=== PATIENT | female | born 1985 | race African-American/Black ===

== ENCOUNTER 2016-10-12 15:25 | Outpatient (CLI) | payer MEDICAID ==
[~2016-10-12 15:25] MED LIST: FERRIC CARBOXYMALTOSE 750 MG in NORMAL SALINE 250 ML IV PRN; NORMAL SALINE 250 ML IV PRN
[2016-10-12 16:48] VITALS: BP 110/76
[2016-10-18] MEDS ORDERED: FERRIC CARBOXYMALTOSE 750 MG in NORMAL SALINE 250 ML IV PRN (07:40)
== END 2016-10-12 16:52 | disposition home or self-care (01) ==
LOC: II 15:25 → 5TH 15:27 → II 16:52
PROVIDERS: ATTEND Internal Medicine
PROC: 3E033GC Introduction of Other Therapeutic Substance into Peripheral Vein, Percutaneous Approach (ICD-10-PCS; principal; 2016-10-12)
DX: D50.8 Other iron deficiency anemias (principal); K90.9 Intestinal malabsorption, unspecified
CPT/HCPCS: 96365; J7050; J1439; 96367

== ENCOUNTER 2016-10-19 14:59 | Outpatient (CLI) | payer MEDICAID ==
[2016-10-19 15:32] VITALS: BP 136/98
== END 2016-10-19 15:42 | disposition home or self-care (01) ==
LOC: II 14:59 → 5TH 15:05 → II 15:42
PROVIDERS: ATTEND Internal Medicine
PROC: 3E033GC Introduction of Other Therapeutic Substance into Peripheral Vein, Percutaneous Approach (ICD-10-PCS; principal; 2016-10-19)
DX: D50.8 Other iron deficiency anemias (principal); K90.9 Intestinal malabsorption, unspecified
CPT/HCPCS: 96365; J7050; J1439; 96367

== ENCOUNTER → 2016-11-15 | Outpatient (CLI) | payer MEDICAID | LOC: RAD 06:59 | PROVIDERS: ATTEND Physician Assistant | DX: M54.41 Lumbago with sciatica, right side (principal) | CPT/HCPCS: 72148 ==

== ENCOUNTER → 2017-01-06 | Outpatient (CLI) | payer MEDICAID | LOC: RAD 13:27 | PROVIDERS: ATTEND Physician Assistant | DX: R20.0 Anesthesia of skin (principal); M54.5 Low back pain | CPT/HCPCS: 82565; 72158; 70470; A9577 ==

== ENCOUNTER 2017-06-24 13:10 | Emergency (ER) | payer MEDICAID ==
--- NOTE | 2017-06-24 15:44 | ER Document Report ---
ED Hip Pain/Injury - General Chief Complaint: Hip Pain Stated Complaint: LEFT SIDE PAIN Time Seen by Provider: 06/24/17 14:50 Mode of Arrival: Ambulatory Information source: Patient Notes: 32-year-old female presents to ED for complaint of lower back hip and down her leg pain. She has chronic pain. She has been on chronic pain management before where she received Percocet. She states that her doctor is trying to put her back on pain management but her pain is gotten pretty bad at this time. Reviewed pain policy with patient concerning chronic pain. Pending she will need to follow-up with her primary doctor for chronic pain management. Patient denies any new injuries TRAVEL OUTSIDE OF THE [place] IN LAST 30 DAYS: No - HPI Patient complains to provider of: Pain, Hip, Pelvis Occurred: Other - Down her leg for more than a year Onset/Duration: Persistent, Waxing and waning Quality of pain: Pressure, Sharp Severity: Severe Rotation of extremity: None Pain with palpation of the pelvis: Yes Associated Symptoms: None. denies: Loss of control/bowel, Loss of control/ bladder, Motor loss, Sensory loss - Related Data Allergies/Adverse Reactions: No Known Allergies Allergy (Verified 06/24/17 13:29) Past Medical History - General Information source: Patient - Social History Smoking Status: Never Smoker Cigarette use (# per day): No Chew tobacco use (# tins/day): No Smoking Education Provided: No Frequency of alcohol use: None Drug Abuse: None Lives with: Family Family History: Reviewed & Not Pertinent Patient has suicidal ideation: No Patient has homicidal ideation: No - Past Medical History Cardiac Medical History: Reports: Hx Hypertension Pulmonary Medical History: Reports: None EENT Medical History: Reports: None Neurological Medical History: Reports: Hx Migraine Endocrine Medical History: Reports: Hx Hypothyroidism Renal/ Medical History: Reports: None Malignancy Medical History: Reports: None GI Medical History: Reports: None Musculoskeltal Medical History: Reports Hx Arthritis, Reports Hx Musculoskeletal Deformity, Reports Hx Musculoskeletal Trauma Skin Medical History: Reports None Psychiatric Medical History: Reports: Hx Bipolar Disorder, Hx Depression Traumatic Medical History: Reports: None Infectious Medical History: Reports: None Past Surgical History: Reports: Hx Abdominal Surgery, Hx Orthopedic Surgery - back surgery for a paraganglioma removal, Hx Tubal Ligation - Immunizations Immunizations up to date: Yes Hx Diphtheria, Pertussis, Tetanus Vaccination: No Review of Systems - Review of Systems Constitutional: No symptoms reported EENT: No symptoms reported Cardiovascular: No symptoms reported Respiratory: No symptoms reported Gastrointestinal: No symptoms reported Genitourinary: No symptoms reported Female Genitourinary: No symptoms reported Musculoskeletal: Back pain, Muscle pain, Muscle stiffness Skin: No symptoms reported Hematologic/Lymphatic: No symptoms reported Neurological/Psychological: No symptoms reported -: Yes All other systems reviewed and negative Physical Exam - Vital signs Vitals: Temp Pulse BP Pulse Ox 98.3 F 82 152/117 H 100 06/24/17 13:28 06/24/17 13:28 06/24/17 13:28 06/24/17 13:28 Interpretation: Normal - General General appearance: Appears well, Alert - HEENT Head: Normocephalic, Atraumatic Eyes: Normal Pupils: PERRL - Respiratory Respiratory status: No respiratory distress Chest status: Nontender Breath sounds: Normal Chest palpation: Normal - Cardiovascular Rhythm: Regular Heart sounds: Normal auscultation Murmur: No - Abdominal Inspection: Normal Distension: No distension Bowel sounds: Normal Tenderness: Nontender Organomegaly: No organomegaly - Back Back: Normal, Tender, Vertebra tenderness, Scars. No: Deformity/step-off, CVA tenderness, Scoliosis, Wounds - Extremities General upper extremity: Normal inspection, Nontender, Normal color, Normal ROM , Normal temperature General lower extremity: Normal inspection, Nontender, Normal color, Normal ROM , Normal temperature, Normal weight bearing. No: Jayshree's sign - Neurological Neuro grossly intact: Yes Cognition: Normal Orientation: AAOx4 Lilli Coma Scale Eye Opening: Spontaneous Lilli Coma Scale Verbal: Oriented Terrell Coma Scale Motor: Obeys Commands Lilli Coma Scale Total: 15 Speech: Normal Motor strength normal: LUE, RUE, LLE, RLE Sensory: Normal - Psychological Associated symptoms: Normal affect, Normal mood - Skin Skin Temperature: Warm Skin Moisture: Dry Skin Color: Normal Course - Re-evaluation Re-evalutation: 06/24/17 15:43 No loss control of bowel bladder, no loss of sensation, no loss of muscle control, patient is steady on her feet walks with a steady gait. No signs or symptoms of cauda equina - Vital Signs Vital signs: Temp Pulse Resp BP Pulse Ox 98.0 F 82 20 148/105 H 98 06/24/17 16:46 06/24/17 16:46 06/24/17 16:46 06/24/17 16:46 06/24/17 16:46 Discharge - Discharge Clinical Impression: Chronic back pain greater than 3 months duration Sciatica Qualifiers: Laterality: left Qualified Code(s): M54.32 - Sciatica, left side Condition: Stable Disposition: HOME, SELF-CARE Additional Instructions: Chronic Back Pain Chronic back pain (pain persisting longer than three months) is a common problem. A medical evaluation can look for herniated disc, arthritis, osteoporosis, tumors, and infections. But at least half the time, there's no obvious treatable cause. Anxiety and depression tend to worsen back pain. Ibuprofen or other anti-inflammatory medicine can help. A heating pad, used for 15-20 minutes at a time, can ease pain. For this type of back pain, narcotic medicines should be avoided. Muscle relaxers are rarely helpful unless you're having spasms. Activity is important. Find an aerobic exercise program that your back can tolerate. Too much rest makes back pain worse. Specific back exercises are usually prescribed to strengthen the back and abdominal muscles. Often, a physical therapist can help. Avoid heavy lifting, working while bent over, or standing with both knees straight. Most back pain patients do better with a firm mattress. If new symptoms of a "herniated disc" (radiation of pain, numbness, or tingling down the back of the leg or weakness in the leg) occur, you should be re-examined. Chronic Pain Control Stress, inactivity, and depression make pain more severe regardless of the cause of the pain. Stress and poor physical condition can cause pain such as headaches and backache. Relaxation: Rest in a quiet place with your eyes closed for 20 minutes twice daily. Concentrate on a pleasant image, or simply "feel" your breathing. Clear your mind. Stress management: Deal with your "stressors." Either take action, or eliminate the stressor from your life. Don't let things hang over you. Accept those things you can't change. Nutrition: Eat small, balanced meals -- don't skip, don't overeat. Meals should be high-carbohydrate, low-sugar, low-fat. Exercise: Exercise helps painful conditions and eases stress. Get 30 minutes of moderate exercise, five days a week. Do an activity that does not flare your pain. Precautions: Pain which continues to disrupt daily activities, or which changes in nature, requires a medical evaluation. Pain Clinic referral is available. We do not manage chronic pain in the Emergency Department. 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 We do not provide repeated medication management of chronic painful conditions. If you wish, we can provide the name of local pain management physicians. USE OF TYLENOL (ACETAMINOPHEN): Acetaminophen may be taken for pain relief or fever control. It's much safer than aspirin, offering a wider range of "safe" dosages. It is safe during . Some brand names are Tylenol, Panadol, Datril, Anacin 3, Tempra, and Liquiprin. Acetaminophen can be repeated every four hours. The following are maximum recommended dosages: WEIGHT Dose Drops Elixir Chewable( 80mg) (LBS.) drprs=droppers tsp=teaspoon 6 40 mg 0.4 ml (1/2) 6-11 80 mg 0.8 ml (full) tsp 1 tab 12-16 120 mg 1 1/2 drprs 3/4 tsp 1 1/2 tabs 17-23 160 mg 2 drprs 1 tsp 2 tabs 24-30 240 mg 3 drprs 1 1/2 tsp 3 tabs 30-35 320 mg 2 tsp 4 tabs 36-41 360 mg 2 1/4 tsp 4 1/2 tabs 42-47 400 mg 2 1/2 tsp 5 tabs 48-53 480 mg 3 tsp 6 tabs 54-59 520 mg 3 1/4 tsp 6 1/2 tabs 60-64 560 mg 3 1/2 tsp 7 tabs 65-70 600 mg 3 3/4 tsp 7 1/2 tabs 71-76 640 mg 4 tsp 8 tabs 77-82 720 mg 4 1/2 tsp 9 tabs 83-88 800 mg 5 tsp 10 tabs >89 pounds or adults 650 mg to 900 mg Acetaminophen can be repeated every four hours. Maximum dose not to exceed 4000 mg a day. These maximum recommended dosages are slightly higher than the dosages written on the product container, but these dosages are very safe and below the toxic dosage for acetaminophen. ICE PACKS: Apply ice packs frequently against the painful area. Many different schedules are recommended, such as "20 minutes on, 20 minutes off" or "one hour ice, two hours rest." If you need to work, you may need to go longer between ice treatments. You should plan to have the area ice packed AT LEAST one fourth of the time. The ice should be applied over the wrap, tape, or splint, or over a layer of cloth -- not directly against the skin. Some ice bags have a built-in cloth and can be put directly on the skin. WARM PACKS: After approximately two days, apply gentle heat (such as a heating pad or hot water bottle) for about 20 to 30 minutes about every two hours -- at least four times daily. Warmth and elevation will help you make a more rapid recovery , and will ease the pain considerably. Do not use HOT heat, and never apply heat for longer than 30 minutes. The continuous heat can invisibly damage skin and muscles -- even when no burn is seen on the surface. Damaged muscles can make you MORE sore. FOLLOW-UP CARE: If you have been referred to a physician for follow-up care, call the physician s office for an appointment as you were instructed or within the next two days. If you experience worsening or a significant change in your symptoms, notify the physician immediately or return to the Emergency Department at any time for re-evaluation. Forms: Elevated Blood Pressure Referrals: RAND JUNIOR PA-C [Primary Care Provider] - Follow up as needed
[2017-06-24 16:48] VITALS: BP 148/105
== END 2017-06-24 16:54 | disposition home or self-care (01) ==
LOC: ER 13:10
DX: G89.29 Other chronic pain (principal); M54.42 Lumbago with sciatica, left side; I10 Essential (primary) hypertension
CPT/HCPCS: 99283

== ENCOUNTER → 2017-08-09 | Outpatient (CLI) | payer MEDICAID ==
--- NOTE | 2017-08-09 12:56 | WOMENS IMAGING REPORT ---
EXAM DESCRIPTION: BILAT DIAGNOSTIC MAMMO W/CAD COMPLETED DATE/TIME: 08/09/2017 10:23 am REASON FOR STUDY: LUMP; N63.0 N63.0 UNSPECIFIED LUMP IN UNSPECIFIED BREAST COMPARISON: None. TECHNIQUE: Standard craniocaudal and mediolateral oblique views of each breast recorded using digita l acquisition. Cone compression views of the left breast were obtained in 2 projections as well as a true lateral vi ew of the left breast. LIMITATIONS: None. FINDINGS: RIGHT BREAST MASSES: No suspicious masses. CALCIFICATIONS: No new or suspicious calcifications. ARCHITECTURAL DISTORTION: None. DEVELOPING DENSITY: None. ASYMMETRY: None noted. OTHER: No other significant findings. LEFT BREAST MASSES: Small nodular mass is identified in the axillary portion of the left breast most consistent w ith an enlarged lymph node. No discrete masses at the site of the palpable abnormality are identifie d. CALCIFICATIONS: No new or suspicious calcifications. ARCHITECTURAL DISTORTION: None. DEVELOPING DENSITY: None. ASYMMETRY: None noted. OTHER: Due to the patient's clinical symptoms ultrasound will be obtained for further evaluation Read with the assistance of CAD: .[facility] - R2 Cenova Version 1.3 .[facility] - R2 Cenova Version 1.3 .[facility] - R2 Cenova Version 2.4 .[facility] [place] - R2 Cenova Version 2.4 .[facility] - R2 [employer] Receiving [employer] Version 9.2 BREAST ULTRASOUND: TECHNIQUE: Static and dynamic grayscale images acquired of the left breast in the specific areas of c linical/mammographic concern. Selected color Doppler images recorded. ELASTOGRAPHY PERFORMED: No. LIMITATIONS: None. FINDINGS: MASS: A heterogeneous solid mass is identified at the approximate 12 to 1 o'clock position in the sub areolar region which appears to extend into the ductal structures. The mass measures 1.8 x 1.0 x 1.6 cm in diameters. A prominent intramammary lymph node is identified at the approximate 1 at 2 o'cloc k position in the left breast measuring 7 x 6 x 7 mm in diameters. Enlarged axillary lymph nodes are identified with the largest measuring 5.1 x 2.7 cm in diameters and a 2nd measuring 3.5 x 1.3 cm in diameters. ELASTOGRAPHY CHARACTERISTICS: Not applicable. OTHER: No other significant finding. IMPRESSION: Heterogeneous mass in the left breast as noted above with apparent associated adenopathy . BREAST DENSITY: b. There are scattered areas of fibroglandular density. BIRAD: 4 Suspicious. Biopsy should be considered. RECOMMENDATION: RECOMMENDED FOLLOW UP: Recommend percutaneous biopsy SPECIFIC INTERVENTION/IMAGING/CONSULTATION RECOMMENDED:The suspicious finding(s) amenable to US guide d core/vacuum assisted biopsy. COMMUNICATION:The imaging findings were not discussed with the patient. Her referring provider has be en notified of the findings. COMMENT: The patient has been notified of the results by letter per SA requirements. Additional no tification policies are in place for contacting patient with suspicious or incomplete findings. Quality ID #[id number]: The [employer] recommends an annual screening mammogram for women aged 40 years or over. This facility utilizes a reminder system to ensure that all patients receive reminder letters, and/or direct phone calls for appointments. This includes reminders for routine scr eening mammograms, diagnostic mammograms, or other Breast Imaging Interventions when appropriate. Th is patient will be placed in the appropriate reminder system. The [employer] (ACR) has developed recommendations for screening MRI of the breast s in certain patient populations, to be used in conjunction with mammography. Breast MRI surveillanc e may be appropriate for women with more than 20% lifetime risk of developing breast cancer as deter mined by genetic testing, significant family history of the disease, or history of mantle radiation f or Hodgkins Disease. ACR Practice Guidelines 2008. TECHNICAL DOCUMENTATION: FINDING NUMBER: (1) ASSESSMENT: (1) JOB ID: [id number] [employer]- All Rights Reserved
--- NOTE | 2017-08-09 12:57 | WOMENS IMAGING REPORT ---
EXAM DESCRIPTION: U/S BREAST UNILATERAL, COMPL COMPLETE DATE/TIME: 08/09/2017 10:58 am REASON FOR STUDY: LEFT BREAST LUMP N63.0 N63.0 UNSPECIFIED LUMP IN UNSPECIFIED BREAST FINDINGS: Please see combined report for performance of procedure and radiologic supervision and int erpretation. IMPRESSION: Please see combined report for performance of procedure and radiologic supervision and i nterpretation.
== END ==
LOC: WI 10:13
PROVIDERS: ATTEND Physician Assistant
DX: N63.42 Unspecified lump in left breast, subareolar (principal)
CPT/HCPCS: 76641; G0204; 77066

== ENCOUNTER → 2017-08-15 | Day surgery (SDC) | payer MEDICAID ==
[~2017-08-15] MED LIST changes: -FERRIC CARBOXYMALTOSE 750 MG in NORMAL SALINE 250 ML IV PRN; +LIDOCAINE 1% INJ-PF (10 MG/ML) 30 ML SDV ONE; -NORMAL SALINE 250 ML IV PRN
--- NOTE | 2017-08-23 08:57 | WOMENS IMAGING REPORT ---
EXAM DESCRIPTION: U/S BREAST BX; U/S BREAST BX EACH ADDT'L; LEFT DIG DX MAMMO NO CHG COMPLETED DATE/TIME: 08/15/2017 2:40 pm; 08/15/2017 2:35 pm REASON FOR STUDY: ABNORMAL MAMMO L BREAST; R92.8; R92.8 TWO BIOPSY SITES IN LEFT BREAST; LEFT S/P US BX FOR CLIP PLACEMENT R92.8 NO CHARGE R92.8 OTH ABN AND INCONCLUSIVE FINDINGS ON DX IMAGING OF NATI COMPARISON: Mammograms and ultrasound 08/09/2017 TECHNIQUE: The procedure was discussed with the patient and the patient agreed to proceed. There are 2 areas of concern at ultrasound and mammography, 12 to 1 o'clock retroareolar region and f ar upper outer quadrant intramammary lymph node at the 1 to 2 o'clock position. Left breast retroareolar nodule: After sterile skin prep and 1.5 mL local lidocaine 1% for skin and deep tissue anesthesia, a 14 gauge coaxial core biopsy needle was used to obtain several cores of tissue from the lesion. Under ultras ound guidance, a ribbon clip was placed in the areas sampled. There were no immediate post-procedure complications. Left breast far upper outer quadrant: After sterile skin prep and 1.5 mL local lidocaine 1% for skin and deep tissue anesthesia, a 14 gauge coaxial core biopsy needle was used to obtain several cores of tissue from the lesion. Under ultras ound guidance, a ribbon clip was placed in the areas sampled. There were no immediate post-procedure complications. MAMMOGRAM: Post-procedure two view mammogram was acquired in the digital mammogram suite. The clips a re in the expected location. No significant hematoma. Pathology yields a diagnosis of benign breast tissue with fat necrosis, acute and chronic inflammatio n, negative for malignancy in the retroareolar region. Benign intramammary lymph node far upper outer quadrant, no malignancy. Pathology is concordant. LIMITATIONS: None. FINDINGS: Ultrasound guided breast biopsy as described above. POST PROCEDURE MAMMOGRAMS FOR MARKER PLACEMENT: Yes IMPRESSION: ULTRASOUND-GUIDED CORE BIOPSY OF THE LEFT BREAST YIELDS A DIAGNOSIS OF benign breast tis claudia with fat necrosis, acute and chronic inflammation retroareolar region. Benign left breast intram ammary lymph node far upper outer quadrant. BI-RADS 2 Benign findings. Please continue bilateral screening mammography/tomosynthesis in July 2011 COMMENT: Patient should return for bilateral screening mammography/ tomosynthesis and July 2018 for follow-up of post biopsy changes COMMUNICATION: This result was discussed with the patient, 0845 hours, 08/23/2017. Patient medication list reviewed: Yes- Quality ID# [id number]:Eligible professional attests to documenting i n the medical record they obtained, updated, or reviewed the patient's current medications. TECHNICAL DOCUMENTATION: JOB ID: [id number] [employer]- All Rights Reserved
== END ==
LOC: WI 13:20
PROVIDERS: ATTEND Physician Assistant
PROC: 0HBU3ZX Excision of Left Breast, Percutaneous Approach, Diagnostic (ICD-10-PCS; principal; 2017-08-15)
DX: R92.8 Other abnormal and inconclusive findings on diagnostic imaging of breast (principal); N64.1 Fat necrosis of breast; N61.0 Mastitis without abscess
CPT/HCPCS: 88342 ×2; 88305 ×2; 19083; 19084; J3490

== ENCOUNTER 2017-10-26 18:04 | Emergency (ER) | payer MEDICAID ==
[2017-10-26 18:11] VITALS: BP 149/98
[2017-10-26 19:21] LABS: ABSOLUTE EOSINOPHILS # (AUTO) 0.2 10^3/uL (0.0-0.6); ABSOLUTE MONOCYTES (AUTO) 0.4 10^3/uL (0.1-1.4); ABSOLUTE NEUT (AUTO) 2.8 10^3/uL (1.7-8.2); BASOPHILS % (AUTO) 0.4 % (0-2); EOSINOPHILS % (AUTO) 2.5 % (0-6); HEMATOCRIT 32.7 % (36.0-47.0); HEMOGLOBIN 10.4 g/dL (12.0-15.5); LYMPHOCYTES % (AUTO) 46.8 % (13-45); MEAN CORPUSCULAR HEMOGLOBIN 24.9 pg (27.0-33.4); MEAN CORPUSCULAR HGB CONC 31.8 g/dL (32.0-36.0); MEAN CORPUSCULAR VOLUME 78 fl (80-97); MONOCYTES % (AUTO) 6.8 % (3-13); PLATELET COUNT 341 10^3/uL (150-450); RED BLOOD COUNT 4.18 10^6/uL (3.72-5.28); RED CELL DISTRIBUTION WIDTH 17.4 % (11.5-14.0); SEGMENTED NEUTROPHILS % (AUTO) 43.5 % (42-78); TOTAL CELLS COUNTED % (AUTO) 100 %; WHITE BLOOD COUNT 6.5 10^3/uL (4.0-10.5)
[2017-10-26 19:34] LABS: ALANINE AMINOTRANSFERASE 110 U/L (9-52); ALBUMIN 4.2 g/dL (3.5-5.0); ALKALINE PHOSPHATASE 37 U/L (38-126); ANION GAP 8 (5-19); ASPARTATE AMINO TRANSFERASE 53 U/L (14-36); BILIRUBIN,DIRECT 0.2 mg/dL (0.0-0.4); BILIRUBIN,TOTAL 0.2 mg/dL (0.2-1.3); BLOOD UREA NITROGEN 10 mg/dL (7-20); CALCIUM 9.2 mg/dL (8.4-10.2); CARBON DIOXIDE 31 mmol/L (22-30); CHLORIDE 103 mmol/L (98-107); GLUCOSE 78 mg/dL (75-110); SODIUM 141.5 mmol/L (137-145); TOTAL PROTEIN 7.6 g/dL (6.3-8.2)
[2017-10-26 19:38] LABS: BILIRUBIN,URINE NEGATIVE (NEGATIVE); GLUCOSE, URINE NEGATIVE (NEGATIVE); KETONES,URINE NEGATIVE (NEGATIVE); LEUKOCYTE ESTERASE,URINE NEGATIVE (NEGATIVE); NITRITE,URINE NEGATIVE (NEGATIVE); PROTEIN,URINE 100 mg/dL (NEGATIVE); URINE SPECIFIC GRAVITY 1.035; UROBILINOGEN,URINE NEGATIVE mg/dL (<2.0)
[2017-10-26 19:39] LABS: APPEARANCE,URINE TURBID; COLOR,URINE RED
--- NOTE | 2017-10-26 19:58 | RADIOLOGY REPORT (SQ) ---
EXAM DESCRIPTION: U/S NON OB PEL W/DOPPLER COMPLETED DATE/TIME: 10/26/2017 7:40 pm REASON FOR STUDY: vaginal bleeding COMPARISON: None. TECHNIQUE: Dynamic and static grayscale images acquired of the pelvis via transabdominal approach an d recorded on PACS. Additional selected color Doppler and spectral images recorded. LIMITATIONS: Body habitus. FINDINGS: UTERUS: Contour normal. No mass. ENDOMETRIAL STRIPE: No focal or generalized thickening. No masses. CERVIX: No nabothian cysts. RIGHT OVARY: No abnormal masses. RIGHT OVARY DOPPLER: Normal arterial vascular flow without evidence for torsion. LEFT OVARY: Ovary not visualized. LEFT OVARY DOPPLER: Ovary not visualized. FREE FLUID: None noted. OTHER: No other significant finding. MEASUREMENTS: UTERUS: 11.5 x 6.7 the 6.3 cm ENDOMETRIAL STRIPE: 10 mm RIGHT OVARY: 2.9 x 2.9 x 2.2 cm LEFT OVARY: Not visualized. IMPRESSION: NORMAL PELVIC ULTRASOUND BY TRANSABDOMINAL TECHNIQUE. As visualized. Left ovary not se en. TECHNICAL DOCUMENTATION: JOB ID: [id number] [employer]- All Rights Reserved
[2017-10-26] MEDS ORDERED: NORMAL SALINE 1000 ML 1,000 ML IV ONE (20:43)
[2017-10-26] MEDS ORDERED: MEDROXYPROGESTERONE ACET 10 MG TABLET PO ONE (20:51)
--- NOTE | 2017-10-26 20:52 | ER Document Report ---
ED GI/ - General Chief Complaint: Vaginal Bleeding Stated Complaint: VAGINAL BLEEDING Time Seen by Provider: 10/26/17 18:49 Mode of Arrival: Ambulatory Information source: Patient Notes: Patient is a 32-year-old female who presents to the ER today for vaginal bleeding since September 19. Patient states that she started with a normal period on September 19, then it stopped and approximately 2 days later started again. She states that it has been anywhere from bright red to dark red and started having clots today. She states this is why she came in because it does not seem to be "slowing down." She denies any abdominal pain, low back pain, fevers or chills. She denies . She is not taking any control. TRAVEL OUTSIDE OF THE [place] IN LAST 30 DAYS: No - Related Data Allergies/Adverse Reactions: No Known Allergies Allergy (Verified 10/26/17 18:06) Past Medical History - General Information source: Patient - Social History Smoking Status: Never Smoker Chew tobacco use (# tins/day): No Frequency of alcohol use: None Drug Abuse: None Family History: Reviewed & Not Pertinent Patient has suicidal ideation: No Patient has homicidal ideation: No - Past Medical History Cardiac Medical History: Reports: Hx Hypertension Neurological Medical History: Reports: Hx Migraine Endocrine Medical History: Reports: Hx Hypothyroidism Renal/ Medical History: Denies: Hx Peritoneal Dialysis Musculoskeltal Medical History: Reports Hx Arthritis, Reports Hx Musculoskeletal Deformity, Reports Hx Musculoskeletal Trauma Psychiatric Medical History: Reports: Hx Bipolar Disorder, Hx Depression Past Surgical History: Reports: Hx Abdominal Surgery, Hx Orthopedic Surgery - back surgery for a paraganglioma removal, Hx Tubal Ligation - Immunizations Immunizations up to date: Yes Hx Diphtheria, Pertussis, Tetanus Vaccination: No Review of Systems - Review of Systems Constitutional: No symptoms reported EENT: No symptoms reported Cardiovascular: No symptoms reported Respiratory: No symptoms reported Gastrointestinal: No symptoms reported Genitourinary: No symptoms reported Female Genitourinary: See HPI Musculoskeletal: No symptoms reported Skin: No symptoms reported Hematologic/Lymphatic: No symptoms reported Neurological/Psychological: No symptoms reported Physical Exam - Vital signs Vitals: Temp Pulse Resp BP Pulse Ox 98.1 F 85 16 149/98 H 100 10/26/17 18:10 10/26/17 18:10 10/26/17 18:10 10/26/17 18:10 10/26/17 18:10 - Notes Notes: PHYSICAL EXAMINATION: GENERAL: Well-appearing and in no acute distress. HEAD: Atraumatic, normocephalic. EYES: Pupils equal round and reactive to light, extraocular movements intact, sclera anicteric, conjunctiva are normal. NECK: Normal range of motion, supple without lymphadenopathy LUNGS: CTAB and equal. No wheezes rales or rhonchi. HEART: Regular rate and rhythm without murmurs ABDOMEN: Soft, no tenderness. No guarding, no rebound BACK: no vertebral tenderness, normal ROM GI/: no CVA tenderness EXTREMITIES: Normal range of motion, no pitting edema. No cyanosis. NEUROLOGICAL: Cranial nerves grossly intact. Normal sensory/motor exams. PSYCH: Normal mood, normal affect. SKIN: Warm, Dry, normal turgor, no rashes or lesions noted Course - Re-evaluation Re-evalutation: 10/26/17 21:05 Lab work unremarkable today, hemoglobin 10.4, patient declines IV fluids today. Pelvic ultrasound reveals no acute abnormality. I will start patient on medroxyprogesterone 10 for days to stop abnormal uterine bleeding. - Vital Signs Vital signs: Temp Pulse Resp BP Pulse Ox 98.1 F 85 16 149/98 H 100 10/26/17 18:10 10/26/17 18:10 10/26/17 18:10 10/26/17 18:10 10/26/17 18:10 - Laboratory Result Diagrams: 10/26/17 19:05 10/26/17 19:05 Laboratory results interpreted by me: 10/26/17 10/26/17 10/26/17 19:05 19:05 19:05 Hgb 10.4 L Hct 32.7 L MCV 78 L MCH 24.9 L MCHC 31.8 L RDW 17.4 H Lymphocytes % 46.8 H Carbon Dioxide 31 H Est GFR (Non-Af Amer) 53 L AST 53 H ALT 110 H Alkaline Phosphatase 37 L Urine Protein 100 H Urine Blood LARGE H Discharge - Discharge Clinical Impression: Abnormal uterine bleeding Condition: Stable Disposition: HOME, SELF-CARE Instructions: Dysfunctional Uterine Bleeding ([facility]) Additional Instructions: Return immediately for any new or worsening symptoms. Follow up with primary care provider, call tomorrow to make followup appointment. Prescriptions: Medroxyprogesterone Acetate 10 mg PO DAILY #9 tablet Forms: Return to Work Referrals: KIRBY SALINAS DO [Primary Care Provider] - Follow up as needed
== END 2017-10-26 21:15 | disposition home or self-care (01) ==
LOC: ER 18:04
DX: N93.9 Abnormal uterine and vaginal bleeding, unspecified (principal); I10 Essential (primary) hypertension
CPT/HCPCS: 99284; 36415; 85025; 81025; 80053; 81001; 76856; 93976; J3490

== ENCOUNTER 2018-02-21 19:48 | Emergency (ER) | payer MEDICAID ==
--- NOTE | 2018-02-21 23:05 | ER Document Report ---
ED General - General Chief Complaint: Edema Stated Complaint: LEG SWELLING Time Seen by Provider: 02/21/18 23:01 Notes: The patient is a 32-year-old female, past medical history chronic low back pain , peripheral neuropathy, chronic peripheral edema, HTN, bipolar, presents with several months of peripheral neuropathy and peripheral edema in her legs. She takes gabapentin 100 mg 3 times daily and has had EMGs and MRI performed as an outpatient already. Patient also had a dull frontal headache that resolved while in the ER. She denies increased neuropathy, increased edema, shortness of breath, cough, hemoptysis, fevers, calf tenderness or chest pain. TRAVEL OUTSIDE OF THE [place] IN LAST 30 DAYS: No - Related Data Allergies/Adverse Reactions: No Known Allergies Allergy (Verified 10/26/17 18:06) Past Medical History - General Information source: Patient - Social History Smoking Status: Never Smoker Frequency of alcohol use: None Drug Abuse: None Family History: Reviewed & Not Pertinent Patient has suicidal ideation: No Patient has homicidal ideation: No - Past Medical History Cardiac Medical History: Reports: Hx Hypertension Neurological Medical History: Reports: Hx Migraine Endocrine Medical History: Reports: Hx Hypothyroidism Renal/ Medical History: Denies: Hx Peritoneal Dialysis Musculoskeltal Medical History: Reports Hx Arthritis, Reports Hx Musculoskeletal Deformity, Reports Hx Musculoskeletal Trauma Psychiatric Medical History: Reports: Hx Bipolar Disorder, Hx Depression Past Surgical History: Reports: Hx Abdominal Surgery, Hx Orthopedic Surgery - back surgery for a paraganglioma removal, Hx Tubal Ligation - Immunizations Immunizations up to date: Yes Hx Diphtheria, Pertussis, Tetanus Vaccination: No Review of Systems - Review of Systems Notes: REVIEW OF SYSTEMS: CONSTITUTIONAL: -fevers, -chills EENT: -eye pain, -difficulty swallowing, -nasal congestion CARDIOVASCULAR: -chest pain, -syncope. RESPIRATORY: -cough, -SOB GASTROINTESTINAL: -abdominal pain, -nausea, -vomiting, -diarrhea GENITOURINARY: -dysuria, -hematuria MUSCULOSKELETAL: +chronic back pain, -neck pain, +chronic peripheral edema SKIN: -rash or skin lesions. HEMATOLOGIC: -easy bruising or bleeding. LYMPHATIC: -swollen, enlarged glands. NEUROLOGICAL: -altered mental status or loss of consciousness, -headache, + peripheral neuropathy PSYCHIATRIC: -anxiety, -depression. ALL OTHER SYSTEMS REVIEWED AND NEGATIVE. Physical Exam - Vital signs Vitals: Temp Pulse Resp BP Pulse Ox 98.2 F 90 20 150/108 H 99 02/21/18 20:29 02/21/18 20:29 02/21/18 20:29 02/21/18 20:29 02/21/18 20:29 - Notes Notes: PHYSICAL EXAMINATION: GENERAL: Well-appearing, well-nourished and in no acute distress. HEAD: Atraumatic, normocephalic. EYES: Pupils equal round and reactive to light, extraocular movements intact, sclera anicteric, conjunctiva are normal. ENT: nares patent, oropharynx clear without exudates. Moist mucous membranes. NECK: Normal range of motion, supple without lymphadenopathy LUNGS: Breath sounds clear to auscultation bilaterally and equal. No wheezes rales or rhonchi. HEART: Regular rate and rhythm without murmurs ABDOMEN: Soft, nontender, normoactive bowel sounds. No guarding, no rebound. No masses appreciated. EXTREMITIES: Normal range of motion, chronic 2+ pitting edema up to mid-morse. No cyanosis. NEUROLOGICAL: Cranial nerves grossly intact. Normal speech, normal gait. Normal motor exams. Tingling in all fingertips and feet. PSYCH: Normal mood, normal affect. SKIN: Warm, Dry, normal turgor, no rashes or lesions noted. Course - Re-evaluation Re-evalutation: Patient's peripheral neuropathy is chronic in nature and she has already had EMGs and MRIs as an outpatient. She is only on gabapentin 100 mg 3 times daily , so will double her dose and have her follow with her primary care physician. She also has chronic peripheral edema and she says her edema is better today than normal. No signs of DVT or pulmonary edema today. She does not require labs in the ER at this time for her chronic issues. The mild headache she had in the waiting room resolved upon my evaluation and is not consistent with meningitis, SAH or ICH at this time. 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 Patient presents with multiple vague complaints that did not appear to be concerning for any acute life-threatening pathology. Vitals are within normal limits at triage and at time of discharge. Physical examination is unremarkable. Patient has tolerated oral intake without difficulty. Patient was not noted to be in distress at any point during their ER visit. At this time, based on the reassuring evaluation, I do not suspect an acute WI, pulmonary embolus, aortic dissection, acute intra-abdominal pathology, stroke, or sepsis.Will discharge with return precautions and follow-up recommendations. Verbal discharge instructions given a the bedside and opportunity for questions given. Medication warnings reviewed. Patient is in agreement with this plan and has verbalized understanding of return precautions and the need for primary care follow-up in the next 24-72 hours. - Vital Signs Vital signs: Temp Pulse Resp BP Pulse Ox 98.2 F 90 20 150/108 H 99 02/21/18 20:29 02/21/18 20:29 02/21/18 20:29 02/21/18 20:29 02/21/18 20:29 Discharge - Discharge Clinical Impression: Peripheral edema Peripheral neuropathy Qualifiers: Peripheral neuropathy type: polyneuropathy, unspecified Qualified Code(s): G62.9 - Polyneuropathy, unspecified Condition: Stable Disposition: HOME, SELF-CARE Additional Instructions: You may increase your gabapentin to 200 mg to 3 times a day and follow-up with your primary care physician tomorrow to discuss further treatment of your chronic nerve pain and chronic edema. Neuropathy Your symptoms are due to neuropathy. Neuropathy is nerve damage. There are many causes, including diabetes, immune disease, alcohol, blood vessel disease, and vitamin deficiency. The usual symptoms are pain and numbness. Neuropathy can occur anywhere, but it's most likely in the "longest" nerves. That's why the feet are most often affected. Sometimes the nerve damage can heal. But if the symptoms have lasted more than a few months, the damage is permanent. To avoid further damage, treat your underlying health problems carefully. If you have diabetes, keep the blood sugar as normal as possible. Avoid alcohol. Treat high blood pressure and high cholesterol. Treating chronic pain can be a problem. Obviously, you don't want to become addicted to pain medicine. Work closely with your doctor on pain management. Your options include antiinflammatory medicine, anti seizure medicine, antidepressants, and pain clinic management. Contact the doctor if there is a significant change. Edema, Peripheral You have swelling in your legs. This is called peripheral edema. It can be caused by "leaky capillaries," inflammation, disease of the leg veins, or excess salt and water in your body. Edema may be a sign of heart, kidney, or liver disease. A medical evaluation can determine if there is a serious underlying cause for your edema. Avoid prolonged standing. If you must sit for a long time, occasionally get up and walk around or elevate your legs. Support stockings can be helpful in limiting swelling. Often diuretic or water pills are used to remove excess salt and water from your body. Call the doctor or return if you develop increased swelling, pain, or redness, shortness of breath, chest pain, or any other significant change. Forms: Elevated Blood Pressure Referrals: KIRBY SALINAS DO [Primary Care Provider] - Follow up as needed
[2018-02-22 00:01] VITALS: BP 142/96
== END 2018-02-21 23:30 | disposition home or self-care (01) ==
LOC: ER 19:48
DX: R60.0 Localized edema (principal); G62.9 Polyneuropathy, unspecified; Z79.899 Other long term (current) drug therapy; I10 Essential (primary) hypertension; R51 Headache
CPT/HCPCS: 99284

== ENCOUNTER 2018-08-25 20:21 | Emergency (ER) | payer MEDICAID ==
--- NOTE | 2018-08-25 23:31 | ER Document Report ---
ED Neck/Back Problem - General Chief Complaint: Back Pain Stated Complaint: PAIN IN PELVIC AREA,NUMBNESS IN TOES Time Seen by Provider: 08/25/18 22:56 Mode of Arrival: Wheelchair Information source: Patient Notes: 33-year-old female presents to the ED for complaint of chronic low back pain radiating to her left calf they got worse around Thanksgiving. She states that she would to the urgent care on Tuesday it was given a shot of steroids and started on hydrocodone without any improvement. Patient ambulates with a steady gait alert and oriented pupils equal and react to light. She states that she felt like she hurt her hip pop and really wanted an x-ray of her hip to ensure there was no new injuries. Patient states that she went to the urgent care at [facility] and stated to her primary care doctor Dr. Dueñas. Patient has a history of high blood pressure and states she takes her medicines as ordered. TRAVEL OUTSIDE OF THE [place] 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 Lives with: Family - 4 teenage children Family History: Reviewed & Not Pertinent Patient has suicidal ideation: No Patient has homicidal ideation: No - Past Medical History Cardiac Medical History: Reports: Hx Hypertension Pulmonary Medical History: Reports: None EENT Medical History: Reports: None Neurological Medical History: Reports: Hx Migraine Endocrine Medical History: Reports: Hx Hypothyroidism Renal/ Medical History: Reports: None Malignancy Medical History: Reports: None GI Medical History: Reports: None Musculoskeletal Medical History: Reports Hx Arthritis, Reports Hx Musculoskeletal Deformity, Reports Hx Musculoskeletal Trauma Skin Medical History: Reports None Psychiatric Medical History: Reports: Hx Bipolar Disorder, Hx Depression Traumatic Medical History: Reports: None Infectious Medical History: Reports: None Past Surgical History: Reports: Hx Abdominal Surgery - 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 Denies recent illness. EENT: Denies eye, ear, throat, or mouth pain or symptoms. Denies nasal or sinus congestion or discharge. Denies throat, tongue, or mouth swelling or difficulty swallowing. CARDIOVASCULAR: Denies chest pain. Denies palpitations or racing or irregular heart beat. Denies ankle edema. RESPIRATORY: Denies cough, cold, or chest congestion. Denies shortness of breath, difficulty breathing, or wheezing. GASTROINTESTINAL: Denies abdominal pain or distention. Denies nausea, vomiting , or diarrhea. Denies blood in vomitus, stools, or per rectum. Denies black, tarry stools. Denies constipation. GENITOURINARY: Denies difficulty urinating, painful urination, burning, frequency, blood in urine, or discharge. FEMALE GENITOURINARY: Denies vaginal bleeding, heavy or abnormal periods, irregular periods. Denies vaginal discharge or odor. MUSCULOSKELETAL: Complains of low back pain with bilateral sciatica worse pain to the left going down the left leg to the foot. She states she felt like her left hip popped out today. She states the pain is been much worse since . States she went to the urgent care and was given steroids and Vicodin but it is not helping the pain. States she is not asking for more narcotics she just wants a x-ray of the hip to ensure that she did not pop something out. SKIN: Denies rash, lesions or sores. HEMATOLOGIC : Denies easy bruising or bleeding. LYMPHATIC: Denies swollen, enlarged glands. NEUROLOGICAL: Denies confusion or altered mental status. Denies passing out or loss of consciousness. Denies dizziness or lightheadedness. Denies headache. Denies weakness or paralysis or loss of use of either side. Denies problems with gait or speech. Denies sensory loss, numbness, or tingling. Denies seizures. PHYSICAL EXAMINATION: GENERAL: Well-appearing, well-nourished and in no acute distress. HEAD: Atraumatic, normocephalic. EYES: Pupils equal round and reactive to light, extraocular movements intact, conjunctiva are normal. ENT: Nares patent, oropharynx clear without exudates. Moist mucous membranes. NECK: Normal range of motion, supple without lymphadenopathy LUNGS: Breath sounds clear to auscultation bilaterally and equal. No wheezes rales or rhonchi. HEART: Regular rate and rhythm without murmurs ABDOMEN: Soft, nontender, nondistended abdomen. No guarding, no rebound. No masses appreciated. Female : deferred Musculoskeletal: Normal range of motion, no pitting or edema. No cyanosis. Tenderness to the low back left and right with tenderness to the left SI joint and across the hip. Patient to the hip joint in the front. Patient has full range of motion of the hip. She is able to ambulate. No saddle anesthesia, no loss of control of bowel bladder, no loss of sensation to the legs, no loss of control of the legs. NEUROLOGICAL: Cranial nerves grossly intact. Normal speech, normal gait. Normal sensory, motor exams PSYCH: Normal mood, normal affect. SKIN: Warm, Dry, normal turgor, no rashes or lesions noted. PSYCHIATRIC: Denies anxiety or stress. Denies depression, suicidal ideation, or homicidal ideation. ALL OTHER SYSTEMS REVIEWED AND NEGATIVE. Dictation was performed using [employer] voice recognition software Physical Exam - Vital signs Vitals: Temp Pulse Resp BP Pulse Ox 98.5 F 87 18 154/108 H 97 08/25/18 20:32 08/25/18 20:32 08/25/18 20:32 08/25/18 20:32 08/25/18 20:32 Course - Re-evaluation Re-evalutation: 08/26/18 02:10 Presentation of a well appearing patient complaining of acute on chronic back pain. No rapid progression of symptoms, systemic symptoms including fevers, chills, weight loss, history of recent bacterial infection, bilateral symptoms, numbness, weakness, difficulty walking, urinary retention or bowel incontinence , personal history of cancer, immunosuppression, diabetes, known AAA, or history of IV drug use. Exam is without point tenderness over vertebral bodies , pulsatile abdominal mass, and patient has symmetric and intact lower extremity strength, sensation, and reflexes without clonus. 2+ symmetric medial malleolar and dorsalis pedis pulses Based on history and physical, I have a very low suspicion of a concerning etiology of pain including epidural compression syndrome, spinal infection, transverse myelitis, malignancy, abdominal aortic aneurysm, renal colic, acute lower extremity claudication, neurogenic claudication, ankylosing spondylitis, or other intra-abdominal process. Due to absence of concerning risk factors in history and physical as well as absence of rapidly progressive, severe, or bilateral symptoms, will defer imaging at this point. Plan to manage conservatively with outpatient analgesia, analgesia, and physical therapy. -Continue steroids and narcotics as prescribed by physician - Continue normal daily activities as tolerated by pain - Provide with standard musculoskeletal back pain exercise instructions - Instruct to follow up with primary care provider if symptoms not improving - Provide careful return precautions and concerning symptoms to watch for. - Vital Signs Vital signs: Temp Pulse Resp BP Pulse Ox 98.5 F 87 18 154/108 H 97 08/25/18 20:32 08/25/18 20:32 08/25/18 20:32 08/25/18 20:32 08/25/18 20:32 - Diagnostic Test Radiology reviewed: Image reviewed, Reports reviewed Discharge - Discharge Clinical Impression: Left hip pain Chronic low back pain with bilateral sciatica Qualifiers: Back pain laterality: bilateral Qualified Code(s): M54.42 - Lumbago with sciatica, left side Condition: Stable Disposition: HOME, SELF-CARE Additional Instructions: Chronic Back Pain Chronic back pain (pain persisting longer than three months) is a common problem. A medical evaluation can look for herniated disc, arthritis, osteoporosis, tumors, and infections. But at least half the time, there's no obvious treatable cause. Anxiety and depression tend to worsen back pain. Ibuprofen or other anti-inflammatory medicine can help. A heating pad, used for 15-20 minutes at a time, can ease pain. For this type of back pain, narcotic medicines should be avoided. Muscle relaxers are rarely helpful unless you're having spasms. Activity is important. Find an aerobic exercise program that your back can tolerate. Too much rest makes back pain worse. Specific back exercises are usually prescribed to strengthen the back and abdominal muscles. Often, a physical therapist can help. Avoid heavy lifting, working while bent over, or standing with both knees straight. Most back pain patients do better with a firm mattress. If new symptoms of a "herniated disc" (radiation of pain, numbness, or tingling down the back of the leg or weakness in the leg) occur, you should be re-examined. Stretching Exercises for the Back The physician has recommended that you begin stretching exercises for your back. These are often used even while the back is painful. However, you should notify the physician if the activities seem to increase your pain. PELVIC TILT: Lie flat on your back with knees bent. Tighten your stomach and buttock muscles so it flattens your lower back against the floor. Hold 10 seconds. Repeat 10 times, twice daily. KNEE RAISE: Lying on the back with knees bent, raise one knee to your chest, then the other. Hold both knees against the chest 10 seconds, then lower one knee at a time. Repeat 10 times, twice daily. PARTIAL TRUNK RAISE: Lie face down, arms at your sides. Keeping your waist on the floor, use your arms raise your chest up. Support yourself on your elbows for 30 seconds. Repeat twice daily, increasing the time to two minutes as you recover. ICE PACKS: Apply ice packs frequently against the painful area. Many different schedules are recommended, such as "20 minutes on, 20 minutes off" or "one hour ice, two hours rest." If you need to work, you may need to go longer between ice treatments. You should plan to have the area ice packed AT LEAST one fourth of the time. The ice should be applied over the wrap, tape, or splint, or over a layer of cloth -- not directly against the skin. Some ice bags have a built-in cloth and can be put directly on the skin. WARM PACKS: After approximately two days, apply gentle heat (such as a heating pad or hot water bottle) for about 20 to 30 minutes about every two hours -- at least four times daily. Warmth and elevation will help you make a more rapid recovery , and will ease the pain considerably. Do not use HOT heat, and never apply heat for longer than 30 minutes. The continuous heat can invisibly damage skin and muscles -- even when no burn is seen on the surface. Damaged muscles can make you MORE sore. Continue taking your oral narcotics and prednisone that you have been given by your primary care doctor. Please see your primary care doctor about getting a pain management referral.. Your x-ray shows no new fractures or injuries to the hip that she stated felt like it it popped. FOLLOW-UP CARE: If you have been referred to a physician for follow-up care, call the physician s office for an appointment as you were instructed or within the next two days. If you experience worsening or a significant change in your symptoms, notify the physician immediately or return to the Emergency Department at any time for re-evaluation. Forms: Elevated Blood Pressure Referrals: KIRBY DUEÑAS, [Primary Care Provider] - Follow up as needed
--- NOTE | 2018-08-25 23:44 | RADIOLOGY REPORT (SQ) ---
EXAM DESCRIPTION: XR HIP 2 OR MORE VIEWS COMPLETED DATE/TME: 08/25/2018 23:12 CLINICAL HISTORY: 33 years, Female, increased pain and felt something pop COMPARISON: None. NUMBER OF VIEWS: 2 TECHNIQUE: AP pelvis and single view left hip LIMITATIONS: None. FINDINGS: Negative for fracture or dislocation. Soft tissues are unremarkable. Joint spaces are preserved IMPRESSION: Negative exam copyright 2010 [employer]- All Rights Reserved
[2018-08-26 02:20] VITALS: BP 145/104
== END 2018-08-26 00:53 | disposition home or self-care (01) ==
LOC: ER 20:21
DX: M54.42 Lumbago with sciatica, left side (principal); M25.552 Pain in left hip; R10.2 Pelvic and perineal pain; G89.29 Other chronic pain; I10 Essential (primary) hypertension; Z98.51 Tubal ligation status
CPT/HCPCS: 99283

== ENCOUNTER → 2018-10-30 | Outpatient (CLI) | payer MEDICAID ==
--- NOTE | 2018-10-30 13:48 | RADIOLOGY REPORT (SQ) ---
EXAM DESCRIPTION: MRA HEAD WITHOUT COMPLETED DATE/TIME: 10/30/2018 1:26 pm REASON FOR STUDY: CEREBRAL ARTERY DISEASE I67.9 CEREBROVASCULAR DISEASE, UNSPECIFIED COMPARISON: None. TECHNIQUE: Axial 3-D [id number] acquisition imaging performed through the brain in the area of t he [place] of [place]. Images reformatted using 3-D MIPS. LIMITATIONS: None. FINDINGS: SOURCE IMAGES: No unexpected findings on source images. No large masses. 3-D MIP: No aneurysm. No occlusions. No significant stenosis. OTHER: No other significant finding. IMPRESSION: NORMAL MRA OF THE [place]. TECHNICAL DOCUMENTATION: JOB ID: [id number] [email or web address]- All Rights Reserved Reading location - IP/workstation name: [email or web address]
== END ==
LOC: RAD 12:59
PROVIDERS: ATTEND Family Medicine
DX: I67.89 Other cerebrovascular disease (principal)
CPT/HCPCS: 70544

== ENCOUNTER → 2018-11-15 | Outpatient (CLI) | payer MEDICAID ==
[2018-11-15 10:20] LABS: HEMATOCRIT 28.7 % (36.0-47.0); HEMOGLOBIN 8.9 g/dL (12.0-15.5); MEAN CORPUSCULAR HEMOGLOBIN 20.9 pg (27.0-33.4); MEAN CORPUSCULAR VOLUME 67 fl (80-97); PLATELET COUNT 333 10^3/uL (150-450); RED BLOOD COUNT 4.25 10^6/uL (3.72-5.28); RED CELL DISTRIBUTION WIDTH 20.7 % (11.5-14.0); WHITE BLOOD COUNT 5.8 10^3/uL (4.0-10.5)
[2018-11-15 10:46] LABS: ALANINE AMINOTRANSFERASE 22 U/L (9-52); ALBUMIN 4.3 g/dL (3.5-5.0); ALKALINE PHOSPHATASE 69 U/L (38-126); ANION GAP 8 (5-19); ASPARTATE AMINO TRANSFERASE 17 U/L (14-36); BILIRUBIN,DIRECT 0.2 mg/dL (0.0-0.4); BILIRUBIN,TOTAL 0.3 mg/dL (0.2-1.3); BLOOD UREA NITROGEN 10 mg/dL (7-20); CALCIUM 9.4 mg/dL (8.4-10.2); CARBON DIOXIDE 34 mmol/L (22-30); CHLORIDE 99 mmol/L (98-107); CHOLESTEROL 160.21 mg/dL (0-200); GLUCOSE 87 mg/dL (75-110); POTASSIUM 4.8 mmol/L (3.6-5.0); SODIUM 141.1 mmol/L (137-145); TOTAL PROTEIN 7.7 g/dL (6.3-8.2); TRIGLYCERIDES 88 mg/dL (<150)
[2018-11-15 10:57] LABS: DIRECT LDL 109 mg/dL (<100)
== END ==
LOC: OD 09:30
PROVIDERS: ATTEND Internal Medicine Cardiovascular Disease
DX: R07.9 Chest pain, unspecified (principal); R00.2 Palpitations
CPT/HCPCS: 36415; 80048; 80061; 80076; 83735; 84443; 85027

== ENCOUNTER → 2019-01-08 | Outpatient (CLI) | payer MEDICAID ==
[2019-01-08 11:30] LABS: HEMATOCRIT 35.5 % (36.0-47.0); HEMOGLOBIN 11.2 g/dL (12.0-15.5); MEAN CORPUSCULAR HEMOGLOBIN 23.8 pg (27.0-33.4); MEAN CORPUSCULAR HGB CONC 31.6 g/dL (32.0-36.0); MEAN CORPUSCULAR VOLUME 75 fl (80-97); PLATELET COUNT 309 10^3/uL (150-450); RED BLOOD COUNT 4.71 10^6/uL (3.72-5.28); RED CELL DISTRIBUTION WIDTH 24.7 % (11.5-14.0); WHITE BLOOD COUNT 5.8 10^3/uL (4.0-10.5)
== END ==
LOC: OD 10:49
PROVIDERS: ATTEND Internal Medicine Cardiovascular Disease
DX: D64.9 Anemia, unspecified (principal)
CPT/HCPCS: 36415; 85027

== ENCOUNTER → 2019-01-16 | Outpatient (CLI) | payer MEDICAID ==
[2019-01-16 11:48] LABS: INTERNATIONAL RATION (INR) 0.86; PROTHROMBIN TIME 12.2 SEC (11.4-15.4)
[2019-01-16 11:49] LABS: PARTIAL THROMBOPLASTIN TIME 35.6 SEC (23.5-35.8)
[2019-01-16 12:12] LABS: ANION GAP 6 (5-19); BLOOD UREA NITROGEN 13 mg/dL (7-20); CALCIUM 9.6 mg/dL (8.4-10.2); CARBON DIOXIDE 31 mmol/L (22-30); CHLORIDE 104 mmol/L (98-107); GLUCOSE 89 mg/dL (75-110); POTASSIUM 4.8 mmol/L (3.6-5.0)
== END ==
LOC: OD 10:47
PROVIDERS: ATTEND Internal Medicine Cardiovascular Disease
DX: I10 Essential (primary) hypertension (principal); R00.2 Palpitations; Z79.899 Other long term (current) drug therapy
CPT/HCPCS: 36415; 80048; 85610; 85730

== ENCOUNTER 2019-05-09 14:00 | Emergency (ER) | payer MEDICAID ==
[2019-05-09] MEDS ORDERED: NORMAL SALINE 1000 ML 1,000 ML IV ONE (14:42)
--- NOTE | 2019-05-09 14:45 | ER Document Report ---
ED Medical Screen (RME) - General Chief Complaint: Syncope Stated Complaint: DIZZINESS Time Seen by Provider: 05/09/19 14:35 Primary Care Provider: DUNG PEDROZA MD [Primary Care Provider] - Follow up as needed TRAVEL OUTSIDE OF THE [place] IN LAST 30 DAYS: No - HPI Notes: 05/09/19 14:43 Patient is a 34-year-old female with a history of lymphedema and Graves' disease who presents complaining of having a syncopal episode last night and feeling dizzy and near syncopal episode today. Patient states that she was walking upstairs because she was feeling weak and wanted to go to her bedroom. Patient states that she did not hit her head. Aside from dizziness/near syncope today she has no other concerns. No recent illness. Denies any prolonged immobilization, distance travel, recent surgery/trauma, personal cancer history, hormone use, smoking, or previous DVT/PE. Denies NOYOLA, fever, neck pain, chest pain, shortness of breath, dyspnea on exertion, URI, n/v/d, Abd pain, dysuria, back pain, or rash. I have treated and performed a rapid initial assessment of this patient. A comprehensive ED assessment and evaluation of the patient, analysis of test results and completion of medical decision making process will be conducted by additional ED providers. PHYSICAL EXAMINATION: GENERAL: Well-appearing, well-nourished and in no acute distress. A&Ox4. Answers questions appropriately. LUNGS: Breath sounds clear to auscultation bilaterally and equal. No wheezes rales or rhonchi. HEART: Regular rate and rhythm without murmurs, rubs, gallops. Extremities: No cyanosis, clubbing, or edema b/l. Jayshree negative bilaterally. No lower extremity asymmetry. NEUROLOGICAL: Normal speech, normal gait. Cranial nerves grossly intact. NIH 0. GCS 15. Strength equal bilaterally. PSYCH: Normal mood, normal affect. - Related Data Allergies/Adverse Reactions: No Known Allergies Allergy (Verified 05/09/19 14:02) Past Medical History - Past Medical History Cardiac Medical History: Reports: Hx Hypertension Neurological Medical History: Reports: Hx Migraine Endocrine Medical History: Reports: Hx Hypothyroidism Renal/ Medical History: Denies: Hx Peritoneal Dialysis Musculoskeltal Medical History: Reports Hx Arthritis, Reports Hx Musculoskeletal Deformity, Reports Hx Musculoskeletal Trauma Psychiatric Medical History: Reports: Hx Bipolar Disorder, Hx Depression Past Surgical History: Reports: Hx Abdominal Surgery - 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 7, Hx Orthopedic Surgery - back surgery for a paraganglioma removal, Hx Tubal Ligation - Immunizations Immunizations up to date: Yes Hx Diphtheria, Pertussis, Tetanus Vaccination: No Physical Exam - Vital signs Vitals: Temp Pulse Resp BP Pulse Ox 98.2 F 88 18 127/86 H 95 05/09/19 14:05 05/09/19 14:05 05/09/19 14:05 05/09/19 14:05 05/09/19 14:05 Course - Vital Signs Vital signs: Temp Pulse Resp BP Pulse Ox 98.2 F 88 18 127/86 H 95 05/09/19 14:05 05/09/19 14:05 05/09/19 14:05 05/09/19 14:05 05/09/19 14:05 Doctor's Discharge - Discharge Referrals: DUNG PEDROZA MD [Primary Care Provider] - Follow up as needed
--- NOTE | 2019-05-09 15:26 | RADIOLOGY REPORT (SQ) ---
EXAM DESCRIPTION: CT HEAD WITHOUT COMPLETED DATE/TIME: 05/09/2019 3:14 pm REASON FOR STUDY: syncopal episode, dizziness COMPARISON: None. TECHNIQUE: Axial images acquired through the brain without intravenous contrast. Images reviewed wi th bone, brain and subdural windows. 10/30/2018, 01/06/2017 Images stored on PACS. All CT scanners at this facility use dose modulation, iterative reconstruction, and/or weight based d osing when appropriate to reduce radiation dose to as low as reasonably achievable (ALARA). [facility]: Dose Right [facility]: CareDose [facility]: Dose Right [facility]: Teradose 4D [facility]: [employer] RADIATION DOSE: CT Rad equipment meets quality standard of care and radiation dose reduction techniq ues were employed. CTDIvol: 53.2 mGy. DLP: 991 mGy-cm. mGy. LIMITATIONS: None. FINDINGS: VENTRICLES: Normal size and contour. CEREBRUM: No masses. No hemorrhage. No midline shift. No evidence for acute infarction. Normal gra y/white matter differentiation. No areas of low density in the white matter. CEREBELLUM: No masses. No hemorrhage. No alteration of density. No evidence for acute infarction. EXTRAAXIAL SPACES: No fluid collections. No masses. Unchanged partially empty sella turcica, a nons pecific finding. ORBITS AND GLOBE: No intra- or extraconal masses. Normal contour of globe without masses. CALVARIUM: No fracture. PARANASAL SINUSES: No fluid or mucosal thickening. SOFT TISSUES: No mass or hematoma. OTHER: No other significant finding. IMPRESSION: No evidence of acute intracranial abnormality. EVIDENCE OF ACUTE STROKE: NO. COMMENT: Quality ID # [id number]: Final reports with documentation of one or more dose reduction techniques (e.g., Automated exposure control, adjustment of the mA and/or kV according to patient size, use of iterative reconstruction technique) TECHNICAL DOCUMENTATION: JOB ID: [id number] [employer]- All Rights Reserved Reading location - IP/workstation name: [email or web address]
--- NOTE | 2019-05-09 15:34 | RADIOLOGY REPORT (SQ) ---
EXAM DESCRIPTION: CHEST SINGLE VIEW COMPLETED DATE/TIME: 05/09/2019 3:21 pm REASON FOR STUDY: syncopal episode COMPARISON: None. EXAM PARAMETERS: NUMBER OF VIEWS: One view. TECHNIQUE: Single frontal radiographic view of the chest acquired. RADIATION DOSE: NA LIMITATIONS: None. FINDINGS: LUNGS AND PLEURA: Minimal linear left basilar opacities, likely atelectasis or scarring. No focal consolidation, pleural effusion or pneumothorax. MEDIASTINUM AND HILAR STRUCTURES: No masses. Contour normal. HEART AND VASCULAR STRUCTURES: Heart normal in size. Normal vasculature. BONES: Old posterior right-sided rib fractures. HARDWARE: None in the chest. OTHER: No other significant finding. IMPRESSION: No evidence of acute cardiopulmonary process. TECHNICAL DOCUMENTATION: JOB ID: [id number] [employer]- All Rights Reserved Reading location - IP/workstation name: [email or web address]
[2019-05-09 15:47] LABS: ABSOLUTE EOSINOPHILS # (AUTO) 0.1 10^3/uL (0.0-0.6); ABSOLUTE LYMPHOCYTES (AUTO) 2.1 10^3/uL (0.5-4.7); ABSOLUTE MONOCYTES (AUTO) 0.4 10^3/uL (0.1-1.4); ABSOLUTE NEUT (AUTO) 2.8 10^3/uL (1.7-8.2); BASOPHILS % (AUTO) 0.3 % (0-2); EOSINOPHILS % (AUTO) 1.6 % (0-6); HEMATOCRIT 36.2 % (36.0-47.0); HEMOGLOBIN 11.6 g/dL (12.0-15.5); LYMPHOCYTES % (AUTO) 38.9 % (13-45); MEAN CORPUSCULAR HEMOGLOBIN 25.8 pg (27.0-33.4); MEAN CORPUSCULAR VOLUME 81 fl (80-97); MONOCYTES % (AUTO) 6.8 % (3-13); PLATELET COUNT 296 10^3/uL (150-450); RED BLOOD COUNT 4.48 10^6/uL (3.72-5.28); RED CELL DISTRIBUTION WIDTH 18.4 % (11.5-14.0); SEGMENTED NEUTROPHILS % (AUTO) 52.4 % (42-78); TOTAL CELLS COUNTED % (AUTO) 100 %; WHITE BLOOD COUNT 5.4 10^3/uL (4.0-10.5)
--- NOTE | 2019-05-09 15:54 | ER Document Report ---
ED Dizziness/Weakness - General Chief Complaint: Syncope Stated Complaint: DIZZINESS Time Seen by Provider: 05/09/19 14:35 Primary Care Provider: DUNG PEDROZA MD [Primary Care Provider] - Follow up as needed Mode of Arrival: Ambulatory Information source: Patient Notes: Patient is an otherwise healthy 34-year-old female presenting to the emergency department with chief complaint of dizziness, syncopal episode yesterday and vaginal bleeding over the last month. Patient denies any nausea, vomiting, diarrhea or fevers. She denies any pain. She also reports tingling to her right fifth digit. She denies any direct trauma to this area. TRAVEL OUTSIDE OF THE [place] IN LAST 30 DAYS: No - Related Data Allergies/Adverse Reactions: No Known Allergies Allergy (Verified 05/09/19 14:02) Past Medical History - General Information source: Patient - Social History Smoking Status: Current Every Day Smoker Frequency of alcohol use: None Drug Abuse: None Family History: Reviewed & Not Pertinent Patient has suicidal ideation: No Patient has homicidal ideation: No - Past Medical History Cardiac Medical History: Reports: Hx Hypertension Neurological Medical History: Reports: Hx Migraine Endocrine Medical History: Reports: Hx Hypothyroidism Renal/ Medical History: Denies: Hx Peritoneal Dialysis Musculoskeletal Medical History: Reports Hx Arthritis, Reports Hx Musculoskeletal Deformity, Reports Hx Musculoskeletal Trauma Psychiatric Medical History: Reports: Hx Bipolar Disorder, Hx Depression Past Surgical History: Reports: Hx Abdominal Surgery - 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 7, Hx Orthopedic Surgery - back surgery for a paraganglioma removal, Hx Tubal Ligation - Immunizations Immunizations up to date: Yes Hx Diphtheria, Pertussis, Tetanus Vaccination: No Review of Systems - Review of Systems Constitutional: Malaise EENT: No symptoms reported Cardiovascular: Dizziness Respiratory: No symptoms reported Gastrointestinal: No symptoms reported Genitourinary: No symptoms reported Female Genitourinary: No symptoms reported Musculoskeletal: No symptoms reported Skin: No symptoms reported Hematologic/Lymphatic: No symptoms reported Neurological/Psychological: No symptoms reported Physical Exam - Vital signs Vitals: Temp Pulse Resp BP Pulse Ox 98.2 F 88 18 127/86 H 95 05/09/19 14:05 05/09/19 14:05 05/09/19 14:05 05/09/19 14:05 05/09/19 14:05 - Notes Notes: PHYSICAL EXAMINATION: GENERAL: Morbidly obese -[place]ames[place] female. HEAD: Atraumatic, normocephalic. EYES: Pupils equal round and reactive to light, extraocular movements intact, conjunctiva are normal. ENT: Nares patent, oropharynx clear without exudates. Moist mucous membranes. NECK: Normal range of motion, supple without lymphadenopathy LUNGS: Breath sounds clear to auscultation bilaterally and equal. No wheezes rales or rhonchi. HEART: Regular rate and rhythm without murmurs ABDOMEN: Soft, nontender, nondistended abdomen. No guarding, no rebound. No masses appreciated. Female : deferred Musculoskeletal: Normal range of motion, no pitting or edema. No cyanosis. NEUROLOGICAL: Cranial nerves grossly intact. Normal speech, normal gait. Normal sensory, motor exams PSYCH: Normal mood, normal affect. SKIN: Warm, Dry, normal turgor, no rashes or lesions noted. Course - Re-evaluation Re-evalutation: 05/09/19 19:52 Laboratory 05/09/19 05/09/19 05/09/19 15:25 15:25 15:25 WBC 5.4 RBC 4.48 Hgb 11.6 L Hct 36.2 MCV 81 MCH 25.8 L MCHC 32.0 RDW 18.4 H Plt Count 296 Seg Neutrophils % 52.4 Lymphocytes % 38.9 Monocytes % 6.8 Eosinophils % 1.6 Basophils % 0.3 Absolute Neutrophils 2.8 Absolute Lymphocytes 2.1 Absolute Monocytes 0.4 Absolute Eosinophils 0.1 Absolute Basophils 0.0 Sodium 139.2 Potassium 4.0 Chloride 95 L Carbon Dioxide 34 H Anion Gap 10 BUN 11 Creatinine 0.92 Est GFR ( Amer) > 60 Est GFR (Non-Af Amer) > 60 Glucose 91 Calcium 9.5 Magnesium 2.0 Total Bilirubin 0.4 Direct Bilirubin 0.3 Neonat Total Bilirubin Not Reportable Neonat Direct Bilirubin Not Reportable Neonat Indirect Bili Not Reportable AST 17 ALT 17 Alkaline Phosphatase 63 Troponin I < 0.012 Total Protein 8.2 Albumin 4.6 TSH Free T4 Free T3 pg/mL Serum HCG, Qual Urine Color Urine Appearance Urine pH Ur Specific [place] Urine Protein Urine Glucose (UA) Urine Ketones Urine Blood Urine Nitrite Urine Bilirubin Urine Urobilinogen Ur Leukocyte Esterase Urine WBC (Auto) Urine RBC (Auto) Urine Ascorbic Acid 05/09/19 05/09/19 05/09/19 15:25 15:25 18:45 WBC RBC Hgb Hct MCV MCH MCHC RDW Plt Count Seg Neutrophils % Lymphocytes % Monocytes % Eosinophils % Basophils % Absolute Neutrophils Absolute Lymphocytes Absolute Monocytes Absolute Eosinophils Absolute Basophils Sodium Potassium Chloride Carbon Dioxide Anion Gap BUN Creatinine Est GFR ( Amer) Est GFR (Non-Af Amer) Glucose Calcium Magnesium Total Bilirubin Direct Bilirubin Neonat Total Bilirubin Neonat Direct Bilirubin Neonat Indirect Bili AST ALT Alkaline Phosphatase Troponin I Total Protein Albumin TSH 4.94 H Free T4 1.19 Free T3 pg/mL 3.15 Serum HCG, Qual NEGATIVE Urine Color RED Urine Appearance TURBID Urine pH 6.0 Ur Specific [place] 1.023 Urine Protein >=500 H Urine Glucose (UA) NEGATIVE Urine Ketones NEGATIVE Urine Blood LARGE H Urine Nitrite NEGATIVE Urine Bilirubin NEGATIVE Urine Urobilinogen 2.0 H Ur Leukocyte Esterase NEGATIVE Urine WBC (Auto) 36 Urine RBC (Auto) >182 Urine Ascorbic Acid NEGATIVE Chest X-Ray 05/09/19 14:41 IMPRESSION: No evidence of acute cardiopulmonary process. Head CT 05/09/19 14:42 IMPRESSION: No evidence of acute intracranial abnormality. EVIDENCE OF ACUTE STROKE: NO. Patient was initially seen by provider in triage who initiated her work-up. She appears well, nontoxic and her vital signs are within normal limits. Her labs are normal other than hematuria however she is on her menstrual cycle at this time. Chest x-ray was obtained and is negative for any acute findings. A CT was performed of her head as ordered by triage provider and does not show any acute intracranial abnormality. All test results were discussed with patient. After administration of 1 L IV fluids patient reports she is feeling much improved. Patient will be discharged home with plans to follow-up with her primary care provider. She states that he is currently working on getting her referral to neurology for her recurrent dizziness. The patient's emergency department workup and current diagnosis were explained to the patient and or family. Follow-up instructions were provided. Medications if prescribed were discussed. Instructions for when to return to the emergency department including specific worrisome symptoms were discussed with the patient and/or family. - Vital Signs Vital signs: Temp Pulse Resp BP Pulse Ox 98.2 F 88 18 127/86 H 95 05/09/19 14:05 05/09/19 14:05 05/09/19 14:05 05/09/19 14:05 05/09/19 14:05 - Laboratory Result Diagrams: 05/09/19 15:25 05/09/19 15:25 Laboratory results interpreted by me: 05/09/19 05/09/19 05/09/19 15:25 15:25 15:25 Hgb 11.6 L MCH 25.8 L RDW 18.4 H Chloride 95 L Carbon Dioxide 34 H TSH 4.94 H Urine Protein Urine Blood Urine Urobilinogen 05/09/19 18:45 Hgb MCH RDW Chloride Carbon Dioxide TSH Urine Protein >=500 H Urine Blood LARGE H Urine Urobilinogen 2.0 H Discharge - Discharge Clinical Impression: Weakness, Dizziness Condition: Stable Disposition: HOME, SELF-CARE Additional Instructions: Feeling of faintness (presyncope) "Presyncope" is the medical term for feeling faint and lightheaded without losing consciousness. Sometimes nausea, pale skin and a sense of dizziness accompany a feeling of faintness. Causes of presyncope include: Drop in blood pressure (orthostatic hypotension). A dramatic drop in your systolic blood pressure - the higher number in your blood pressure reading - may result in lightheadedness or a feeling of faintness. It can occur after sitting up or standing too quickly. Inadequate output of blood from the heart. Conditions such as partially blocked arteries (atherosclerosis), disease of the heart muscle (cardiomyopathy), abnormal heart rhythm (arrhythmia) or a decrease in blood volume may cause inadequate blood flow from your heart. Loss of balance (disequilibrium) Disequilibrium is the loss of balance or the feeling of unsteadiness when you walk. Causes may include: Inner ear (vestibular) problems. Abnormalities with your inner ear can cause you to feel like you are floating, have a heavy head or are unsteady in the dark. Sensory disorders. Failing vision and nerve damage in your legs (peripheral neuropathy) are common in older adultsand may result in difficulty maintaining your balance. Joint and muscle problems. Muscle weakness and osteoarthritis - the type of arthritis that involves wear and tear of your joints - can contribute to loss of balance when it involves your weight-bearing joints. Medications. Loss of balance can be a side effect of certain medications, such as anti-seizure drugs, sedatives and tranquilizers. Lightheadedness and other kinds of 'dizziness' Feeling lightheaded is the feeling of being "spaced out" or having the sensation of spinning inside your head. It can also give you the sensation that if your lightheadedness worsens, you might lose consciousness. Causes may include: Inner ear disorders. These abnormalities of your inner ear can lead to illusions of motion and make you feel like you're floating. Anxiety disorders. Certain anxiety disorders, such as panic attacks and a fear of leaving home or being in large, open spaces (agoraphobia), may cause lightheadedness. Hyperventilation. Abnormally rapid breathing that often accompanies anxiety disorders may make you feel lightheaded. Your work-up here in the emergency department today was reassuring. While we could not find any exact cause of your symptoms your work-up today did not show any evidence of any life-threatening illness. Please set up an appointment with your primary care provider to discuss your symptoms. Please return to the emergency department for any new or worsening symptoms. Referrals: DUNG PEDROZA MD [Primary Care Provider] - Follow up as needed
[2019-05-09 16:06] LABS: ALBUMIN 4.6 g/dL (3.5-5.0); ALKALINE PHOSPHATASE 63 U/L (38-126); ANION GAP 10 (5-19); ASPARTATE AMINO TRANSFERASE 17 U/L (14-36); BILIRUBIN,DIRECT 0.3 mg/dL (0.0-0.4); BILIRUBIN,TOTAL 0.4 mg/dL (0.2-1.3); BLOOD UREA NITROGEN 11 mg/dL (7-20); CALCIUM 9.5 mg/dL (8.4-10.2); CARBON DIOXIDE 34 mmol/L (22-30); CHLORIDE 95 mmol/L (98-107); GLUCOSE 91 mg/dL (75-110); TOTAL PROTEIN 8.2 g/dL (6.3-8.2)
[2019-05-09 16:22] LABS: FREE T3 3.15 pg/mL (2.77-5.27); FREE T4 (FREE THYROXINE) 1.19 ng/dL (0.78-2.19)
[2019-05-09 16:36] LABS: THYROID STIMULATING HORMONE 4.94 uIU/mL (0.47-4.68)
[2019-05-09 19:22] LABS: BILIRUBIN,URINE NEGATIVE (NEGATIVE); GLUCOSE, URINE NEGATIVE (NEGATIVE); KETONES,URINE NEGATIVE (NEGATIVE); LEUKOCYTE ESTERASE,URINE NEGATIVE (NEGATIVE); NITRITE,URINE NEGATIVE (NEGATIVE); PROTEIN,URINE >=500 mg/dL (NEGATIVE); URINE SPECIFIC GRAVITY 1.023
[2019-05-09 19:25] LABS: APPEARANCE,URINE TURBID; COLOR,URINE RED
[2019-05-09 20:14] VITALS: BP 118/96
--- NOTE | 2019-05-10 11:21 | EKG REPORT ---
SEVERITY:- NORMAL ECG - SINUS RHYTHM : Confirmed by: Yosvany Kc 10-May-2019 11:20:58
== END 2019-05-09 20:09 | disposition home or self-care (01) ==
LOC: ER 14:00
DX: R42 Dizziness and giddiness (principal); R53.1 Weakness; R55 Syncope and collapse; E66.01 Morbid (severe) obesity due to excess calories; F17.200 Nicotine dependence, unspecified, uncomplicated; I10 Essential (primary) hypertension; E03.9 Hypothyroidism, unspecified; Z98.51 Tubal ligation status
CPT/HCPCS: 93005; 99284; 96360; 36415; 84439; 83735; 84443; 84703; 85025; 80053; 81001; 84484; 84481; 71045; 70450; 93010; J7030

== ENCOUNTER 2019-06-15 15:02 | Emergency (ER) | payer MEDICAID ==
--- NOTE | 2019-06-15 16:01 | ER Document Report ---
ED Medical Screen (RME) - General Chief Complaint: Fall Injury Stated Complaint: FALL Time Seen by Provider: 06/15/19 15:21 Primary Care Provider: DUNG PEDROZA MD [Primary Care Provider] - Follow up as needed Notes: Patient is a 34-year-old female who presents the emergency department with a chief complaint of numbness to the right side of her face. This happened 2 days ago. She called her primary care doctor and was told to go to the emergency department but did not. What prompted her to come to the emergency department was that she was walking up her stairs and was about on the 4th-5th step and slipped on a piece of paper and fell and hit her head. She states that she also felt her legs buckling. She has a past medical history of hypothyroidism, lymphedema, Graves' disease, hypertension, bipolar disorder, and anxiety. She also states that she has not been on her levothyroxine for the past few days because it was not given to her by her pharmacy. Exam: 4 out of 5 strength in bilateral upper extremities. I have greeted and performed a rapid initial assessment of this patient. A comprehensive ED assessment and evaluation of the patient, analysis of test results and completion of medical decision making process will be conducted by an additional ED providers. TRAVEL OUTSIDE OF THE [place] IN LAST 30 DAYS: No - Related Data Allergies/Adverse Reactions: No Known Allergies Allergy (Verified 05/09/19 14:02) Past Medical History - Past Medical History Cardiac Medical History: Reports: Hx Hypertension Neurological Medical History: Reports: Hx Migraine Endocrine Medical History: Reports: Hx Hypothyroidism Renal/ Medical History: Denies: Hx Peritoneal Dialysis Musculoskeltal Medical History: Reports Hx Arthritis, Reports Hx Musculoskeletal Deformity, Reports Hx Musculoskeletal Trauma Psychiatric Medical History: Reports: Hx Bipolar Disorder, Hx Depression Past Surgical History: Reports: Hx Abdominal Surgery - 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 7, Hx Orthopedic Surgery - back surgery for a paraganglioma removal, Hx Tubal Ligation - Immunizations Immunizations up to date: Yes Hx Diphtheria, Pertussis, Tetanus Vaccination: No Physical Exam - Vital signs Vitals: Temp Pulse Resp BP Pulse Ox 98.2 F 93 18 122/75 92 06/15/19 15:04 06/15/19 15:04 06/15/19 15:04 06/15/19 15:04 06/15/19 15:04 Course - Vital Signs Vital signs: Temp Pulse Resp BP Pulse Ox 98.2 F 93 18 122/75 92 06/15/19 15:04 06/15/19 15:04 06/15/19 15:04 06/15/19 15:04 06/15/19 15:04 Doctor's Discharge - Discharge Referrals: DUNG PEDROZA MD [Primary Care Provider] - Follow up as needed
[2019-06-15 16:39] LABS: ABSOLUTE EOSINOPHILS # (AUTO) 0.1 10^3/uL (0.0-0.6); ABSOLUTE LYMPHOCYTES (AUTO) 1.7 10^3/uL (0.5-4.7); ABSOLUTE MONOCYTES (AUTO) 0.3 10^3/uL (0.1-1.4); ABSOLUTE NEUT (AUTO) 3.3 10^3/uL (1.7-8.2); BASOPHILS % (AUTO) 0.3 % (0-2); EOSINOPHILS % (AUTO) 2.3 % (0-6); HEMATOCRIT 33.6 % (36.0-47.0); HEMOGLOBIN 10.8 g/dL (12.0-15.5); LYMPHOCYTES % (AUTO) 31.6 % (13-45); MEAN CORPUSCULAR HEMOGLOBIN 26.1 pg (27.0-33.4); MEAN CORPUSCULAR HGB CONC 32.1 g/dL (32.0-36.0); MEAN CORPUSCULAR VOLUME 82 fl (80-97); MONOCYTES % (AUTO) 5.6 % (3-13); PLATELET COUNT 306 10^3/uL (150-450); RED BLOOD COUNT 4.13 10^6/uL (3.72-5.28); RED CELL DISTRIBUTION WIDTH 17.9 % (11.5-14.0); SEGMENTED NEUTROPHILS % (AUTO) 60.2 % (42-78); TOTAL CELLS COUNTED % (AUTO) 100 %; WHITE BLOOD COUNT 5.5 10^3/uL (4.0-10.5)
--- NOTE | 2019-06-15 16:53 | RADIOLOGY REPORT (SQ) ---
EXAM DESCRIPTION: SHOULDER LEFT 2 OR MORE VIEWS COMPLETED DATE/TIME: 06/15/2019 4:34 pm REASON FOR STUDY: fall COMPARISON: 06/02/2010 NUMBER OF VIEWS: Four views. TECHNIQUE: Internal rotation, external rotation, and Y view images acquired of the left shoulder. LIMITATIONS: None. FINDINGS: MINERALIZATION: Normal. BONES: No acute fracture. No worrisome bone lesions. JOINTS: No dislocation. VISUALIZED LUNGS AND RIBS: No pneumothorax. No rib fracture. SOFT TISSUES: No radiopaque foreign body. OTHER: No other significant finding. IMPRESSION: No evidence of acute osseous injury. TECHNICAL DOCUMENTATION: JOB ID: [id number] [employer]- All Rights Reserved Reading location - IP/workstation name: [email or web address]
[2019-06-15 16:59] LABS: ALBUMIN 4.2 g/dL (3.5-5.0); ALKALINE PHOSPHATASE 75 U/L (38-126); ANION GAP 8 (5-19); ASPARTATE AMINO TRANSFERASE 18 U/L (14-36); BILIRUBIN,DIRECT 0.2 mg/dL (0.0-0.4); BILIRUBIN,TOTAL 0.2 mg/dL (0.2-1.3); BLOOD UREA NITROGEN 13 mg/dL (7-20); CALCIUM 9.4 mg/dL (8.4-10.2); CHLORIDE 93 mmol/L (98-107); GLUCOSE 87 mg/dL (75-110); POTASSIUM 4.4 mmol/L (3.6-5.0); TOTAL PROTEIN 7.9 g/dL (6.3-8.2)
[2019-06-15 17:14] LABS: FREE T3 1.59 pg/mL (2.77-5.27); FREE T4 (FREE THYROXINE) 0.23 ng/dL (0.78-2.19)
[2019-06-15 17:20] LABS: CARBON DIOXIDE 40 mmol/L (22-30)
--- NOTE | 2019-06-15 17:26 | RADIOLOGY REPORT (SQ) ---
EXAM DESCRIPTION: CT HEAD WITHOUT COMPLETED DATE/TIME: 06/15/2019 4:55 pm REASON FOR STUDY: weakness/fall COMPARISON: 05/09/2019 TECHNIQUE: Axial images acquired through the brain without intravenous contrast. Images reviewed wit h bone, brain and subdural windows. Images stored on PACS. All CT scanners at this facility use dose modulation, iterative reconstruction, and/or weight based d osing when appropriate to reduce radiation dose to as low as reasonably achievable (ALARA). [facility]: Dose Right [facility]: CareDose [facility]: Dose Right [facility]: Teradose 4D [facility]: Smart [employer] RADIATION DOSE: CT Rad equipment meets quality standard of care and radiation dose reduction techniq ues were employed. CTDIvol: 53.2 mGy. DLP: 991 mGy-cm.. LIMITATIONS: None. FINDINGS: VENTRICLES: Normal size and contour. CEREBRUM: No masses. No hemorrhage. No midline shift. Age appropriate white matter. No evidence for a cute infarction. CEREBELLUM: No masses. No hemorrhage. No alteration of density. No evidence for acute infarction. EXTRA-AXIAL SPACES: No fluid collections. ORBITS AND GLOBE: No intra- or extraconal masses. Normal contour of globe without masses. CALVARIUM: No fracture. PARANASAL SINUSES: No fluid. Maxillary mucosal thickening. SOFT TISSUES: No mass or hematoma. OTHER: No other significant finding. IMPRESSION: NO ACUTE INTRACRANIAL FINDINGS. EVIDENCE OF ACUTE STROKE: NO. TECHNICAL DOCUMENTATION: JOB ID: [id number] Quality ID # [id number]: Final reports with documentation of one or more dose reduction techniques (e.g., Au tomated exposure control, adjustment of the mA and/or kV according to patient size, use of iterative reconstruction technique) 2010 [employer]- All Rights Reserved Reading location - IP/workstation name: [email or web address]
--- NOTE | 2019-06-15 17:26 | RADIOLOGY REPORT (SQ) ---
EXAM DESCRIPTION: CT CERVICAL SPINE WITHOUT COMPLETED DATE/TIME: 06/15/2019 4:55 pm REASON FOR STUDY: neck pain/fall COMPARISON: None. TECHNIQUE: Axial images acquired through the cervical spine without intravenous contrast. Images re viewed with lung, soft tissue and bone windows. Reconstructed coronal and sagittal MPR images review ed. Images stored on PACS. All CT scanners at this facility use dose modulation, iterative reconstruction, and/or weight based d osing when appropriate to reduce radiation dose to as low as reasonably achievable (ALARA). [facility]: Dose Right [facility]: CareDose [facility]: Dose Right [facility]: Teradose 4D [facility]: [employer] RADIATION DOSE: CT Rad equipment meets quality standard of care and radiation dose reduction techniq ues were employed. CTDIvol: 28.4 mGy. DLP: 580 mGy-cm. mGy. LIMITATIONS: None. FINDINGS: ALIGNMENT: Anatomic. MINERALIZATION: Normal. VERTEBRAL BODIES: No fractures or dislocation. DISCS: There is mild disc narrowing at C5-6 with marginal osteophytes. FACETS, LATERAL MASSES, POSTERIOR ELEMENTS: No fractures. No dislocation. No acute findings. HARDWARE: None in the spine. VISUALIZED RIBS: No fractures. LUNG APICES AND SOFT TISSUES: No significant or acute findings. OTHER: No other significant finding. IMPRESSION: Mild degenerative disc disease and spondylosis. No acute finding. TECHNICAL DOCUMENTATION: JOB ID: [id number] Quality ID # [id number]: Final reports with documentation of one or more dose reduction techniques (e.g., Au tomated exposure control, adjustment of the mA and/or kV according to patient size, use of iterative reconstruction technique) 2010 [employer] All Rights Reserved Reading location - IP/workstation name: [email or web address]
[2019-06-15] MEDS ORDERED: IPRATROPIUM/ALBUTEROL 0.5-2.5 MG/3 ML AMPUL NEB ONE (18:16)
--- NOTE | 2019-06-15 18:20 | ER Document Report ---
ED General - General Chief Complaint: Fall Injury Stated Complaint: FALL Time Seen by Provider: 06/15/19 15:21 Primary Care Provider: DUNG PEDROZA MD [EMERITUS] - Follow up as needed TRAVEL OUTSIDE OF THE [place] IN LAST 30 DAYS: No - HPI Notes: Patient is a 34-year-old female with a history of hypothyroidism, lymphedema, hypertension, bipolar, anxiety, obstructive sleep apnea (not currently using CPAP machine) who presents to the emergency department status post fall prior to arrival. Patient states that she was going to come yesterday per the direction of her family doctor she has continued to have intermittent tingling and numbness to the right side of her face for years that occurs daily for 3 to 5 minutes and then goes away. Patient states that on occasion her knees will feel weak and will buckle on her. Patient states that she slipped on a piece of paper that was on the steps. Patient states that she hit her forehead off of the windowsill but did not lose consciousness. She has been able to ambulate since then without any difficulties. Patient has not been taking her thyroid medicine for the past 4 days. She is otherwise able to eat and drink without di fficulty. She is urinating normally and having normal bowel movements. Denies any headache, fever, neck pain, changes in vision/speech/mentation/hearing, URI, sore throat, chest pain, palpitations, syncope, cough, shortness of breath, wheeze, dyspnea, abdominal pain, nausea/vomiting/diarrhea, urinary retention, dysuria, hematuria, loss of control of bowel or bladder, saddle anesthesia, muscle paralysis/weakness, or rash. - Related Data Allergies/Adverse Reactions: No Known Allergies Allergy (Verified 05/09/19 14:02) Past Medical History - Social History Smoking Status: Never Smoker Frequency of alcohol use: None Drug Abuse: None Family History: Reviewed & Not Pertinent Patient has suicidal ideation: No Patient has homicidal ideation: No - Past Medical History Cardiac Medical History: Reports: Hx Hypertension Neurological Medical History: Reports: Hx Migraine Endocrine Medical History: Reports: Hx Hypothyroidism Renal/ Medical History: Denies: Hx Peritoneal Dialysis Musculoskeletal Medical History: Reports Hx Arthritis, Reports Hx Musculoskeletal Deformity, Reports Hx Musculoskeletal Trauma Psychiatric Medical History: Reports: Hx Bipolar Disorder, Hx Depression Past Surgical History: Reports: Hx Abdominal Surgery - 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 7, Hx Orthopedic Surgery - back surgery for a paraganglioma removal, Hx Tubal Ligation - Immunizations Immunizations up to date: Yes Hx Diphtheria, Pertussis, Tetanus Vaccination: No Review of Systems - Review of Systems -: Yes All other systems reviewed and negative Physical Exam - Vital signs Vitals: Temp Pulse Resp BP Pulse Ox 98.2 F 93 18 122/75 92 06/15/19 15:04 06/15/19 15:04 06/15/19 15:04 06/15/19 15:04 06/15/19 15:04 - Notes Notes: PHYSICAL EXAMINATION: accompanied by female nurse GENERAL: Well-appearing, well-nourished and in no acute distress. A&Ox4. Answers questions appropriately. Obese. HEAD: Atraumatic, normocephalic. Non-tender. No christian sign EYES: Pupils equal round and reactive to light, extraocular movements intact, sclera anicteric, conjunctiva are normal. No raccoon eyes/entrapment ENT: EAC clear b/l. TM's intact b/l without erythema, fluid, or perforation. Nares patent and without discharge. oropharynx clear without exudates. No tonsilar hypertrophy or erythema. Moist mucous membranes. No sinus tenderness. No hemotympanum/CSF discharge. NECK: Normal range of motion, supple without lymphadenopathy. No rigidity. No midline tenderness. Chest: No flail chest. equal rise/fall. Non-tender LUNGS: Breath sounds clear to auscultation bilaterally and equal. No wheezes rales or rhonchi. HEART: Regular rate and rhythm without murmurs, rubs, gallops. ABDOMEN: Soft, nontender, nondistended abdomen. No guarding, no rebound. Normal bowel sounds present. No CVA tenderness bilaterally. Musculoskeletal: Ext b/l: FROM to passive/active. Strength 5+/5. No deficits noted. No bony tenderness of extremities. Back: FROM to passive/active. Strength 5+/5. No vertebral point tenderness, stepoffs, or deformities. No other bony tenderness or ecchymosis. SLR negative b/l. Extremities: Trace pitting edema b/l LE's. Peripheral pulses 2+. Capillary refill less than 2 seconds. NEUROLOGICAL: NIH 0. GCS 15. Cranial nerves grossly intact. Normal speech, normal gait. Normal sensory, motor exams. Reflexes 2+ b/l. JOSE's negative. Pronator drift negative. Heel/morse, finger/nose wnl. PSYCH: Normal mood, normal affect. SKIN: Warm, Dry, normal turgor, no rashes or lesions noted. Course - Re-evaluation Re-evalutation: 06/15/19 I did review this with Dr. Goldstein who agrees with dispo/plan: Patient is an afebrile, well-hydrated, 34-year-old female who presents with head injury status post fall and hypothyroidism with a TSH of 74. Vitals are acceptable without significant tachycardia, tachypnea, hypoxia. Patient is nontoxic-appearing and is tolerating p.o. without difficulty. Lungs are clear to auscultation bilaterally. Patient was found to have an elevated CO2 on CMP, but historically patient is a chronic CO2 retainer. ABG was ordered, but there was a venous supply returned which explains her abnormals which are acceptable for VBG. She is otherwise alert and oriented and responds appropriately. NIH 0, GCS 15, cranial nerves grossly intact. CT scan of the head and cervical spine were unremarkable. Chest x-ray unremarkable. See thyroid panel. Lab work otherwise acceptable. No further work-up warranted. Patient does not have any chest pain, dyspnea on exertion, or shortness of breath. Low suspicion for any acute intracranial pathology, fracture, myxedema coma, thyroid storm, ACS, PE, pneumothorax, pericarditis, dissection, respiratory compromise, severe dehydrati on, sepsis, meningitis, or other systemic emergent condition at this time. Patient is aware that her condition can change from initial presentation and she needs to monitor symptoms closely and seek medical attention for any acute changes. I will send her home with a prescription for her thyroid medication. Recommend conservative measures for symptoms. Recheck with your PCM in 2-3 days. Return to the ED with any worsening/concerning symptoms otherwise as reviewed in discharge. Patient is in agreement. - Vital Signs Vital signs: Temp Pulse Resp BP Pulse Ox 98.2 F 93 18 122/75 92 06/15/19 15:04 06/15/19 15:04 06/15/19 15:04 06/15/19 15:04 06/15/19 15:04 - Laboratory Result Diagrams: 06/15/19 16:10 06/15/19 16:10 Laboratory results interpreted by me: 0906/15/19 06/15/19 16:10 16:10 16:10 Hgb 10.8 L Hct 33.6 L MCH 26.1 L RDW 17.9 H Carbonic Acid ABG pCO2 ABG pO2 ABG HCO3 ABG Total CO2 ABG O2 Saturation Chloride 93 L Carbon Dioxide 40 H* Est GFR (MDRD) Non-Af 56 L TSH 74.00 H Free T4 0.23 L Free T3 pg/mL 1.59 L 06/15/19 18:27 Hgb Hct MCH RDW Carbonic Acid 2.12 H ABG pCO2 70.4 H* ABG pO2 20.1 L* ABG HCO3 37.9 H ABG Total CO2 40.1 H ABG O2 Saturation 28.3 L Chloride Carbon Dioxide Est GFR (MDRD) Non-Af TSH Free T4 Free T3 pg/mL Discharge - Discharge Clinical Impression: History of chronic carbon dioxide retention Hypothyroidism Qualifiers: Hypothyroidism type: unspecified Qualified Code(s): E03.9 - Hypothyroidism, unspecified Condition: Stable Disposition: HOME, SELF-CARE Additional Instructions: You need to be taking your thyroid medication as her thyroid lab levels are abnormal. Also be using her CPAP machine at night. Rest, Ice/cool compress Tylenol/ibuprofen as needed Light stretches daily Strength exercises as able Moist heat and massage may help F/u with your PCP in 2-3 days for a recheck Return to the ED with any worsening symptoms and/or development of fever, headache, changes in behavior/mentation/vision/speech, chest pain, palpitations, syncope, shortness of breath, trouble breathing, abdominal pain, n/v/d, blood in stool/urine, loss of control of bowel/bladder, urinary retention, muscle weakness/paralysis, saddle anesthesia, numbness/tingling, or other worsening symptoms that are concerning to you. Prescriptions: Levothyroxine Sodium 300 mcg PO DAILY #30 tablet Referrals: DUNG PEDROZA MD [EMERITUS] - Follow up as needed
[2019-06-15 18:47] LABS: ARTERIAL BLOOD BASE EXCESS 9.9 mmol/L; ARTERIAL BLOOD H2CO3 2.12 mmol/L (1.05-1.35); ARTERIAL BLOOD HCO3 37.9 mmol/L (20-24); ARTERIAL BLOOD O2 SATURATION 28.3 % (94-98); ARTERIAL BLOOD PH 7.35 (7.35-7.45); ARTERIAL BLOOD TOTAL CO2 40.1 mmol/L (21-25)
[2019-06-15 18:50] LABS: ARTERIAL BLOOD FIO2 ROOM AIR
[2019-06-15 18:53] LABS: ARTERIAL BLOOD PCO2 70.4 mmHg (35-45); ARTERIAL BLOOD PO2 20.1 mmHg (80-100)
[2019-06-15 19:54] VITALS: BP 128/78
--- NOTE | 2019-06-15 22:31 | EKG REPORT ---
SEVERITY:- BORDERLINE ECG - SINUS RHYTHM BORDERLINE PROLONGED QT INTERVAL : Confirmed by: Anselmo Phelan MD 15-Jun-2019 22:30:39
== END 2019-06-15 19:48 | disposition home or self-care (01) ==
LOC: ER 15:02
DX: E03.9 Hypothyroidism, unspecified (principal); R20.0 Anesthesia of skin; F41.9 Anxiety disorder, unspecified; R53.1 Weakness; I10 Essential (primary) hypertension
CPT/HCPCS: 93005; 36415; 84439; 82803; 84443; 85025; 80053; 84481; 73030; 70450; 72125; 93010; J7620; 94640; 99284

== ENCOUNTER 2019-09-11 00:46 | Emergency (ER) | payer MEDICAID ==
[2019-09-11 01:31] VITALS: BP 132/87
== END 2019-09-11 02:17 | disposition left against medical advice (07) ==
LOC: ER 00:46
DX: Z53.21 Procedure and treatment not carried out due to patient leaving prior to being seen by health care provider (principal)
CPT/HCPCS: 87070; 87880

== ENCOUNTER 2019-09-28 16:34 | Emergency (ER) | payer MEDICAID ==
[2019-09-28] MEDS ORDERED: NORMAL SALINE 1000 ML 1,000 ML IV ONE (17:44)
--- NOTE | 2019-09-28 17:47 | ER Document Report ---
ED Medical Screen (RME) - General Chief Complaint: Dizziness Stated Complaint: DIZZINESS,SYNCOPE Time Seen by Provider: 09/28/19 17:35 Primary Care Provider: KIRBY SALINAS DO [Primary Care Provider] - Follow up as needed Notes: Patient is a 34-year-old female who presents to the emergency department for dizziness, tingling in her face and feeling faint. 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 Exam: Generalized weakness noted. I have greeted and performed a rapid initial assessment of this patient. A comprehensive ED assessment and evaluation of the patient, analysis of test results and completion of medical decision making process will be conducted by an additional ED providers. TRAVEL OUTSIDE OF THE [place] IN LAST 30 DAYS: No - Related Data Allergies/Adverse Reactions: No Known Allergies Allergy (Verified 09/28/19 17:35) Past Medical History - Social History Chew tobacco use (# tins/day): No Frequency of alcohol use: None Drug Abuse: None - Past Medical History Cardiac Medical History: Reports: Hx Hypertension Neurological Medical History: Reports: Hx Migraine Endocrine Medical History: Reports: Hx Hypothyroidism Renal/ Medical History: Denies: Hx Peritoneal Dialysis Musculoskeltal Medical History: Reports Hx Arthritis, Reports Hx Musculoskeletal Deformity, Reports Hx Musculoskeletal Trauma Psychiatric Medical History: Reports: Hx Bipolar Disorder, Hx Depression Past Surgical History: Reports: Hx Abdominal Surgery - 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
[2019-09-28 18:58] LABS: APPEARANCE,URINE SLIGHTLY-CLOUDY; BILIRUBIN,URINE NEGATIVE (NEGATIVE); COLOR,URINE YELLOW; GLUCOSE, URINE NEGATIVE (NEGATIVE); KETONES,URINE NEGATIVE (NEGATIVE); PROTEIN,URINE 30 mg/dL (NEGATIVE); URINE SPECIFIC GRAVITY 1.021
--- NOTE | 2019-09-28 19:45 | EKG REPORT ---
SEVERITY:- BORDERLINE ECG - SINUS RHYTHM BORDERLINE T ABNORMALITIES, DIFFUSE LEADS : Confirmed by: Anselmo Phelan MD 28-Sep-2019 19:45:16
[2019-09-28 19:48] LABS: ABSOLUTE EOSINOPHILS # (AUTO) 0.1 10^3/uL (0.0-0.6); ABSOLUTE LYMPHOCYTES (AUTO) 2.4 10^3/uL (0.5-4.7); ABSOLUTE MONOCYTES (AUTO) 0.3 10^3/uL (0.1-1.4); ABSOLUTE NEUT (AUTO) 3.8 10^3/uL (1.7-8.2); BASOPHILS % (AUTO) 0.4 % (0-2); EOSINOPHILS % (AUTO) 1.3 % (0-6); HEMATOCRIT 36.5 % (36.0-47.0); HEMOGLOBIN 11.8 g/dL (12.0-15.5); LYMPHOCYTES % (AUTO) 36.1 % (13-45); MEAN CORPUSCULAR HEMOGLOBIN 25.4 pg (27.0-33.4); MEAN CORPUSCULAR HGB CONC 32.4 g/dL (32.0-36.0); MEAN CORPUSCULAR VOLUME 78 fl (80-97); MONOCYTES % (AUTO) 4.8 % (3-13); PLATELET COUNT 259 10^3/uL (150-450); RED BLOOD COUNT 4.65 10^6/uL (3.72-5.28); RED CELL DISTRIBUTION WIDTH 17.9 % (11.5-14.0); SEGMENTED NEUTROPHILS % (AUTO) 57.4 % (42-78); TOTAL CELLS COUNTED % (AUTO) 100 %; WHITE BLOOD COUNT 6.7 10^3/uL (4.0-10.5)
[2019-09-28 20:05] LABS: ALBUMIN 4.5 g/dL (3.5-5.0); ALKALINE PHOSPHATASE 69 U/L (38-126); ANION GAP 11 (5-19); ASPARTATE AMINO TRANSFERASE 22 U/L (14-36); BILIRUBIN,DIRECT 0.3 mg/dL (0.0-0.4); BILIRUBIN,TOTAL 0.6 mg/dL (0.2-1.3); BLOOD UREA NITROGEN 17 mg/dL (7-20); CALCIUM 9.2 mg/dL (8.4-10.2); CARBON DIOXIDE 35 mmol/L (22-30); CHLORIDE 93 mmol/L (98-107); CREATINE KINASE 57 U/L (30-135); GLUCOSE 84 mg/dL (75-110); POTASSIUM 3.6 mmol/L (3.6-5.0); TOTAL PROTEIN 8.8 g/dL (6.3-8.2)
--- NOTE | 2019-09-28 21:50 | ER Document Report ---
ED General - General Chief Complaint: Dizziness Stated Complaint: DIZZINESS,SYNCOPE Time Seen by Provider: 09/28/19 17:35 Primary Care Provider: KIRBY SALINAS DO [Primary Care Provider] - Follow up in 3-5 days Notes: Patient is a 34-year-old female that comes to the emergency department for chief complaint of episodes of lightheadedness and muscle jerking. She states that she gets these every day all the time and she has had these chronically now, however she states over the past 1 to 2 days she has become more lightheaded than usual and she became concerned. She does admit that she is currently on her menstrual cycle, she is on 2 diuretics, and she is also currently fasting for jew reasons. She denies passing out, headache, vomiting, fever, chest pain, shortness of breath. Past medical history includes hypothyroidism, hypertension, chronic lymphedema, bipolar/anxiety. Family at bedside. TRAVEL OUTSIDE OF THE [place] IN LAST 30 DAYS: No - Related Data Allergies/Adverse Reactions: No Known Allergies Allergy (Verified 09/28/19 17:35) Past Medical History - General Information source: Patient, Relative - Social History Smoking Status: Never Smoker Chew tobacco use (# tins/day): No Frequency of alcohol use: None Drug Abuse: None Lives with: Family Family History: Reviewed & Not Pertinent Patient has suicidal ideation: No Patient has homicidal ideation: No - Past Medical History Cardiac Medical History: Reports: Hx Hypertension Neurological Medical History: Reports: Hx Migraine Endocrine Medical History: Reports: Hx Hypothyroidism Renal/ Medical History: Denies: Hx Peritoneal Dialysis Musculoskeletal Medical History: Reports Hx Arthritis, Reports Hx Musculoskeletal Deformity, Reports Hx Musculoskeletal Trauma Psychiatric Medical History: Reports: Hx Bipolar Disorder, Hx Depression Past Surgical History: Reports: Hx Abdominal Surgery - 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 7, Hx Orthopedic Surgery - back surgery for a paraganglioma removal, Hx Tuba l Ligation - Immunizations Immunizations up to date: Yes Hx Diphtheria, Pertussis, Tetanus Vaccination: No Review of Systems - Review of Systems Constitutional: See HPI EENT: No symptoms reported Cardiovascular: See HPI Respiratory: No symptoms reported Gastrointestinal: No symptoms reported Genitourinary: No symptoms reported Female Genitourinary: See HPI Musculoskeletal: No symptoms reported Skin: No symptoms reported Hematologic/Lymphatic: No symptoms reported Neurological/Psychological: See HPI Physical Exam - Vital signs Vitals: Temp Resp BP 98.2 F 18 99/83 L 09/28/19 16:54 09/28/19 16:54 09/28/19 16:54 - Notes Notes: GENERAL: Alert, interacts well. No acute distress. HEAD: Normocephalic, atraumatic. EYES: Pupils equal, round, and reactive to light. Extraocular movements intact. ENT: Oral mucosa very dry, tongue midline. Oropharynx unremarkable. Airway patent. LUNGS: Clear to auscultation bilaterally, no wheezes, rales, or rhonchi. No respiratory distress. HEART: Regular rate and rhythm. No murmur ABDOMEN: Soft, non-tender. Non-distended. Bowel sounds present in all 4 q uadrants. GENITOURINARY: Deferred EXTREMITIES: Moves all 4 extremities spontaneously. No edema, normal radial and dorsalis pedis pulses bilaterally. No cyanosis. BACK: no cervical, thoracic, lumbar midline tenderness. No saddle anesthesia, normal distal neurovascular exam. Moves all extremities in full range of motion. NEUROLOGICAL: Alert and oriented x3. Normal speech. Cranial nerves II through X II grossly intact. PSYCH: Normal affect, normal mood. SKIN: Warm, dry, normal turgor. No rashes or lesions noted. Course - Re-evaluation Re-evalutation: Initial blood pressure was slightly low at 99 systolic, recheck is normal [facility]. Patient is alert, well-appearing, has no current complaints on my evaluation. She has no headache, no neurological deficits. She does have extremely dry mucous membranes. She is on diuretics, she is currently fasting, she states she is concerned she might have overdone it. She is also currently on a menstrual cycle which has lasted about 3 weeks now. I did offer during evaluation for the vaginal bleeding and even treatment of the vaginal bleeding with hormones but patient declined, she states she wants to follow-up with her [facility] to have this addressed. We discussed different options, she will be given lactated Ringer's, orthostatic vital signs rechecked, as these are okay she will follow-up with her primary care with return precautions. Patient and family state satisfaction with this plan. - Vital Signs Vital signs: Temp Pulse Resp BP Pulse Ox 97.5 F 86 16 113/82 96 09/29/19 00:06 09/29/19 00:06 09/29/19 00:06 09/29/19 00:06 09/29/19 00:06 - Laboratory Result Diagrams: 09/28/19 19:21 09/28/19 19:21 Laboratory results interpreted by me: 09/28/19 09/28/19 09/28/19 18:08 19:21 19:21 Hgb 11.8 L MCV 78 L MCH 25.4 L RDW 17.9 H Chloride 93 L Carbon Dioxide 35 H Est GFR (MDRD) Non-Af 49 L Total Protein 8.8 H Urine Protein 30 H Urine Blood LARGE H Urine Urobilinogen 4.0 H - EKG Interpretation by Me Additional EKG results interpreted by me: EKG shows sinus rhythm at a rate of 89, QTC of 473, normal axis, no T wave inversions or ST segment changes in consecutive leads. T waves are slightly flattened inferiorly but there is no significant change from prior. Discharge - Discharge Clinical Impression: Dizziness, Muscle spasm Condition: Stable Disposition: HOME, SELF-CARE Additional Instructions: I suspect your dizziness symptoms are combination of some dehydration from your diuretics, the abnormal vaginal bleeding that you have been experiencing with some anemia, and your fasting. Your overall work-up is reassuring today. If symptoms continue consider not fasting. Follow-up with [facility] in closely for management of irregular vaginal bleeding. Follow-up with primary care for management of ongoing dizziness symptoms. Return if you worsen including passing out, severe abdominal pain, fever, difficulty breathing, chest pain, or any other concerning or worsening symptoms. Referrals: KIRBY SALINAS DO [Primary Care Provider] - Follow up in 3-5 days
[2019-09-28] MEDS ORDERED: RINGERS SOLUTION,LACTATED 1,000 ML IV ONE (22:06)
[2019-09-29 00:08] VITALS: BP 113/82
== END 2019-09-29 00:08 | disposition home or self-care (01) ==
LOC: ER 16:34
DX: R42 Dizziness and giddiness (principal); M62.838 Other muscle spasm; Z79.899 Other long term (current) drug therapy; I10 Essential (primary) hypertension
CPT/HCPCS: 93005; 99284; 96360; 36415; 82550; 85025; 80053; 81001; 93010; J7120